=== PATIENT | female | born 1940 | race Caucasian/White ===

== ENCOUNTER 2016-08-15 12:24 | Outpatient (CLI) | payer MEDICARE, OTHER | END 2016-08-15 12:25 | disposition home or self-care (01) | DX: T84.213A Breakdown (mechanical) of internal fixation device of bones of foot and toes, initial encounter (principal); S82.302A Unspecified fracture of lower end of left tibia, initial encounter for closed fracture; S82.832A Other fracture of upper and lower end of left fibula, initial encounter for closed fracture; M17.12 Unilateral primary osteoarthritis, left knee ==

== ENCOUNTER 2016-08-28 10:20 | Inpatient (IN) | payer MEDICARE, OTHER ==
[~2016-08-28 10:20] MED LIST: ceFAZolin 2 GM/50 ML 50 ML IV ONE
[2016-08-28] MEDS ORDERED: LACTATED RINGERS 1,000 ML IV ONE ×2 (11:31→15:37)
[2016-08-28] MEDS ORDERED: MIDAZOLAM 2 MG/2 ML VIAL IVP ONE (13:15)
[2016-08-28] MEDS ORDERED: fentaNYL 100 MCG/2 ML VIAL IVP ONE (13:15)
[2016-08-28] MEDS ORDERED: ACETAMINOPHEN 325 MG TABLET PO PRN (15:32)
[2016-08-28] MEDS ORDERED: BISACODYL 10 MG SUPP PR PRN (15:36)
[2016-08-28] MEDS: ACETAMINOPHEN 1,000 MG/100 ML 100 ML IV SCH ×2 (16:52→22:56)
[2016-08-28] MEDS: HYDROmorphone 1 MG/ML SYRINGE IVP PRN ×2 (17:08→20:07)
[2016-08-28] MEDS: SODIUM CHLORIDE 0.9% 1,000 ML IV SCH (17:10)
[2016-08-28] MEDS: ceFAZolin 2 GM/50 ML 50 ML IV SCH ×2 (17:14→23:51)
[2016-08-28] MEDS: HYDROcod/ACETAM 5/325 MG TABLET PO PRN ×2 (18:07→23:51)
[2016-08-28] MEDS: KETOROLAC 30 MG/ML VIAL IVP PRN (19:19)
[2016-08-28] MEDS: levETIRAcetam 250 MG TABLET PO SCH (20:08)
[2016-08-28] MEDS: SODIUM CHLORIDE FLUSH 0.9% 10 ML SYRINGE IVP SCH (22:58)
[2016-08-29] MEDS: LORazepam 0.5 MG TABLET PO PRN (00:41)
[2016-08-29] MEDS: ACETAMINOPHEN 1,000 MG/100 ML 100 ML IV SCH ×4 (03:52→21:19)
[2016-08-29] MEDS: SODIUM CHLORIDE 0.9% 1,000 ML IV SCH ×2 (04:59→14:21)
[2016-08-29] MEDS: ceFAZolin 2 GM/50 ML 50 ML IV SCH (05:34)
[2016-08-29] MEDS: SODIUM CHLORIDE FLUSH 0.9% 10 ML SYRINGE IVP SCH ×3 (05:44→20:39)
[2016-08-29] MEDS ORDERED: CITALOPRAM 10 MG TABLET PO SCH (09:00)
[2016-08-29] MEDS: MULTIVITAMIN 10 ML, THIAMINE INJ 100 MG, FOLIC ACID INJ 1 MG in SODIUM CHLORIDE 0.9% 1,... IV SCH (09:01)
[2016-08-29] MEDS: levETIRAcetam 250 MG TABLET PO SCH ×2 (09:05→20:38)
[2016-08-29] MEDS: CALCIUM CARBONATE CHEW 500 MG TABLET PO SCH (09:05)
[2016-08-29] MEDS: DOCUSATE SODIUM 100 MG CAPSULE PO SCH (09:05)
[2016-08-29] MEDS: PYRIDOXINE 100 MG TABLET PO SCH (09:06)
[2016-08-29] MEDS: CHOLECALCIFEROL 1,000 UNIT TABLET PO SCH (09:06)
[2016-08-29] MEDS: BISACODYL 5 MG TABLET PO SCH (09:06)
[2016-08-29] MEDS: MAGNESIUM OXIDE 400 MG TABLET PO SCH (09:07)
[2016-08-29] MEDS: VERAPAMIL ER 120 MG TABLET PO SCH (09:07)
[2016-08-29] MEDS: CYANOCOBALAMIN 500 MCG TABLET PO SCH (09:07)
[2016-08-29] MEDS: ENOXAPARIN 40 MG/0.4 ML SYRINGE SUBQ SCH (09:08)
[2016-08-29] MEDS: OMEGA PO SCH (09:52)
[2016-08-29] MEDS: DHA PO SCH (09:52)
[2016-08-29] MEDS: LIPIDS PO SCH (09:52)
[2016-08-29] MEDS: ZINC GLUCONATE PO SCH (09:52)
[2016-08-29] MEDS: KRILL PO SCH (09:52)
[2016-08-29] MEDS: EPA PO SCH (09:52)
[2016-08-29] MEDS: KETOROLAC 30 MG/ML VIAL IVP PRN (14:09)
[2016-08-29] MEDS: SODIUM CHLORIDE FLUSH 0.9% 10 ML SYRINGE IVP PRN (21:35)
[2016-08-30] MEDS: LORazepam 0.5 MG TABLET PO PRN (00:05)
[2016-08-30] MEDS: HYDROcod/ACETAM 5/325 MG TABLET PO PRN ×2 (00:55→23:52)
[2016-08-30] MEDS: ACETAMINOPHEN 1,000 MG/100 ML 100 ML IV SCH ×4 (03:42→22:12)
[2016-08-30] MEDS: SODIUM CHLORIDE FLUSH 0.9% 10 ML SYRINGE IVP SCH ×3 (03:52→22:12)
[2016-08-30] MEDS: levETIRAcetam 250 MG TABLET PO SCH ×2 (09:26→22:12)
[2016-08-30] MEDS: MAGNESIUM OXIDE 400 MG TABLET PO SCH (09:26)
[2016-08-30] MEDS: CALCIUM CARBONATE CHEW 500 MG TABLET PO SCH (09:26)
[2016-08-30] MEDS: ENOXAPARIN 40 MG/0.4 ML SYRINGE SUBQ SCH (09:26)
[2016-08-30] MEDS: PYRIDOXINE 100 MG TABLET PO SCH (09:27)
[2016-08-30] MEDS: CHOLECALCIFEROL 1,000 UNIT TABLET PO SCH (09:28)
[2016-08-30] MEDS: BISACODYL 5 MG TABLET PO SCH (09:29)
[2016-08-30] MEDS: VERAPAMIL ER 120 MG TABLET PO SCH (09:29)
[2016-08-30] MEDS: CYANOCOBALAMIN 500 MCG TABLET PO SCH (09:29)
[2016-08-30] MEDS: DOCUSATE SODIUM 100 MG CAPSULE PO SCH (09:29)
[2016-08-30] MEDS: CITALOPRAM 10 MG TABLET PO SCH (09:41)
[2016-08-30] MEDS: MULTIVITAMIN 10 ML, THIAMINE INJ 100 MG, FOLIC ACID INJ 1 MG in SODIUM CHLORIDE 0.9% 1,... IV SCH (09:42)
[2016-08-30] MEDS: LIPIDS PO SCH (10:15)
[2016-08-30] MEDS: DHA PO SCH (10:15)
[2016-08-30] MEDS: KRILL PO SCH (10:15)
[2016-08-30] MEDS: EPA PO SCH (10:15)
[2016-08-30] MEDS: ZINC GLUCONATE PO SCH (10:15)
[2016-08-30] MEDS: OMEGA PO SCH (10:15)
[2016-08-30] MEDS ORDERED: SODIUM CHLORIDE 0.9% 100ML 100 ML IV ONE (16:47)
[2016-08-30] MEDS: SODIUM CHLORIDE FLUSH 0.9% 10 ML SYRINGE IVP PRN ×2 (16:55→22:12)
[2016-08-31] MEDS: ACETAMINOPHEN 1,000 MG/100 ML 100 ML IV SCH ×3 (08:40→15:44)
[2016-08-31] MEDS: SODIUM CHLORIDE FLUSH 0.9% 10 ML SYRINGE IVP SCH ×2 (08:42→13:49)
[2016-08-31] MEDS: MULTIVITAMIN 10 ML, THIAMINE INJ 100 MG, FOLIC ACID INJ 1 MG in SODIUM CHLORIDE 0.9% 1,... IV SCH (10:21)
[2016-08-31] MEDS: CALCIUM CARBONATE CHEW 500 MG TABLET PO SCH (10:27)
[2016-08-31] MEDS: BISACODYL 5 MG TABLET PO SCH (10:28)
[2016-08-31] MEDS: CHOLECALCIFEROL 1,000 UNIT TABLET PO SCH (10:28)
[2016-08-31] MEDS: DOCUSATE SODIUM 100 MG CAPSULE PO SCH (10:29)
[2016-08-31] MEDS: CITALOPRAM 10 MG TABLET PO SCH (10:29)
[2016-08-31] MEDS: CYANOCOBALAMIN 500 MCG TABLET PO SCH (10:29)
[2016-08-31] MEDS: ENOXAPARIN 40 MG/0.4 ML SYRINGE SUBQ SCH (10:30)
[2016-08-31] MEDS: levETIRAcetam 250 MG TABLET PO SCH (10:30)
[2016-08-31] MEDS: MAGNESIUM OXIDE 400 MG TABLET PO SCH (10:30)
[2016-08-31] MEDS: PYRIDOXINE 100 MG TABLET PO SCH (10:30)
[2016-08-31] MEDS: VERAPAMIL ER 120 MG TABLET PO SCH (10:31)
[2016-08-31] MEDS: LIPIDS PO SCH (10:32)
[2016-08-31] MEDS: KRILL PO SCH (10:32)
[2016-08-31] MEDS: DHA PO SCH (10:32)
[2016-08-31] MEDS: EPA PO SCH (10:32)
[2016-08-31] MEDS: OMEGA PO SCH (10:32)
[2016-08-31] MEDS: ZINC GLUCONATE PO SCH (10:33)
== END 2016-08-31 17:30 | DRG 493 ==
PROC: 0QSK04Z Reposition Left Fibula with Internal Fixation Device, Open Approach (ICD-10-PCS; principal; 2016-08-28 11:30)
PROC: 0QSH04Z Reposition Left Tibia with Internal Fixation Device, Open Approach (ICD-10-PCS; principal; 2016-08-28 11:30)
DX: S89.102A Unspecified physeal fracture of lower end of left tibia, initial encounter for closed fracture (principal); G81.94 Hemiplegia, unspecified affecting left nondominant side; S89.302A Unspecified physeal fracture of lower end of left fibula, initial encounter for closed fracture; M81.0 Age-related osteoporosis without current pathological fracture; Z91.81 History of falling; Z66 Do not resuscitate; Z98.890 Other specified postprocedural states

== ENCOUNTER 2016-09-21 18:23 | Outpatient (CLI) | payer MEDICARE, OTHER | END 2016-09-21 18:24 | disposition critical access hospital (66) | DX: S89.82XA Other specified injuries of left lower leg, initial encounter (principal); W18.11XA Fall from or off toilet without subsequent striking against object, initial encounter; Y92.002 Bathroom of unspecified non-institutional (private) residence as the place of occurrence of the external cause | CPT/HCPCS: A0425; A0429 ==

== ENCOUNTER 2016-09-21 18:34 | Emergency (ER) | payer MEDICARE, OTHER | END 2016-09-21 19:50 | disposition home or self-care (01) | DX: S82.202A Unspecified fracture of shaft of left tibia, initial encounter for closed fracture (principal); S82.832A Other fracture of upper and lower end of left fibula, initial encounter for closed fracture; W18.30XA Fall on same level, unspecified, initial encounter; Y93.89 Activity, other specified; Y92.002 Bathroom of unspecified non-institutional (private) residence as the place of occurrence of the external cause; Y99.8 Other external cause status; G81.90 Hemiplegia, unspecified affecting unspecified side; Z79.82 Long term (current) use of aspirin; Z87.891 Personal history of nicotine dependence ==

== ENCOUNTER 2016-09-28 06:38 | Inpatient (IN) | payer MEDICARE, OTHER ==
[~2016-09-28 06:38] MED LIST changes: +ACETAMINOPHEN 1,000 MG/100 ML 100 ML IV ONE
[2016-09-28] MEDS ORDERED: LACTATED RINGERS 1,000 ML IV ONE ×2 (07:11→09:20)
[2016-09-28] MEDS ORDERED: KETAMINE 500 MG/10 ML VIAL IVP ONE (10:00)
[2016-09-28] MEDS ORDERED: ONDANSETRON 4 MG/2 ML VIAL IVP ONE (10:00)
[2016-09-28] MEDS ORDERED: ACETAMINOPHEN 1,000 MG/100 ML VIAL IV ONE (10:00)
[2016-09-28] MEDS ORDERED: PROPOFOL 200 MG/20 ML VIAL IVP ONE (10:00)
[2016-09-28] MEDS ORDERED: ePHEDrine 50 MG/ML AMP IVP ONE (10:00)
[2016-09-28] MEDS ORDERED: fentaNYL 250 MCG/5 ML VIAL IVP ONE (10:00)
[2016-09-28] MEDS ORDERED: MIDAZOLAM 2 MG/2 ML VIAL IVP ONE (10:00)
[2016-09-28] MEDS ORDERED: LIDOCAINE-MPF 2% 5 ML VIAL IM ONE (10:00)
[2016-09-28] MEDS ORDERED: BUPIVACAINE 0.5%-EPI 1:200000 PF 30 ML VIAL SUBQ ONE (10:37)
[2016-09-28] MEDS ORDERED: ONDANSETRON 4 MG/2 ML VIAL IVP PRN (10:51)
[2016-09-28] MEDS ORDERED: PROCHLORPERAZINE 10 MG/2 ML VIAL IVP PRN (10:51)
[2016-09-28] MEDS ORDERED: BISACODYL 5 MG TABLET PO PRN (10:51)
[2016-09-28] MEDS ORDERED: HYDROmorphone 1 MG/ML SYRINGE IVP PRN (10:51)
[2016-09-28] MEDS ORDERED: ACETAMINOPHEN 325 MG TABLET PO PRN (10:51)
[2016-09-28] MEDS ORDERED: SODIUM CHLORIDE FLUSH 0.9% 10 ML SYRINGE IVP PRN (10:51)
[2016-09-28] MEDS ORDERED: BISACODYL 10 MG SUPP PR PRN (10:51)
[2016-09-28] MEDS ORDERED: ceFAZolin 2 GM/50 ML 50 ML IV SCH (14:00)
[2016-09-28] MEDS: ACETAMINOPHEN 1,000 MG/100 ML 100 ML IV PRN ×2 (14:17→21:38)
[2016-09-28] MEDS: ceFAZolin 2 GM/50 ML 50 ML IV SCH ×2 (14:37→20:19)
[2016-09-28] MEDS: SODIUM CHLORIDE FLUSH 0.9% 10 ML SYRINGE IVP SCH ×2 (15:22→20:56)
[2016-09-28] MEDS: SODIUM CHLORIDE 0.9% 1,000 ML IV SCH ×2 (16:56→20:56)
[2016-09-28] MEDS ORDERED: CARBOXYMETHYLCELLULOSE OPHTH DROPS EACHEYE PRN (19:38)
[2016-09-28] MEDS: levETIRAcetam 250 MG TABLET PO SCH (20:51)
[2016-09-29] MEDS: SODIUM CHLORIDE 0.9% 1,000 ML IV SCH ×2 (00:55→12:22)
[2016-09-29] MEDS: ceFAZolin 2 GM/50 ML 50 ML IV SCH (02:08)
[2016-09-29] MEDS: ACETAMINOPHEN 1,000 MG/100 ML 100 ML IV PRN ×2 (04:57→10:30)
[2016-09-29] MEDS: SODIUM CHLORIDE FLUSH 0.9% 10 ML SYRINGE IVP SCH (05:01)
[2016-09-29] MEDS ORDERED: ASPIRIN 325 MG TABLET PO SCH (08:00)
[2016-09-29] MEDS ORDERED: ENOXAPARIN 30 MG/0.3 ML SYRINGE SUBQ SCH (09:00)
[2016-09-29] MEDS ORDERED: KRILL PO SCH (09:00)
[2016-09-29] MEDS ORDERED: BORON PO SCH (09:00)
[2016-09-29] MEDS ORDERED: MANGANESE PO SCH (09:00)
[2016-09-29] MEDS ORDERED: LIPIDS PO SCH (09:00)
[2016-09-29] MEDS ORDERED: MAGNESIUM OXIDE 400 MG TABLET PO SCH (09:00)
[2016-09-29] MEDS ORDERED: DHA PO SCH (09:00)
[2016-09-29] MEDS ORDERED: ZINC GLUCONATE PO SCH (09:00)
[2016-09-29] MEDS ORDERED: VERAPAMIL ER 120 MG TABLET PO SCH (09:00)
[2016-09-29] MEDS ORDERED: EPA PO SCH (09:00)
[2016-09-29] MEDS ORDERED: CALCIUM CARBONATE CHEW 500 MG TABLET PO SCH (09:00)
[2016-09-29] MEDS ORDERED: OMEGA PO SCH (09:00)
[2016-09-29] MEDS: levETIRAcetam 250 MG TABLET PO SCH (09:41)
== END 2016-09-29 14:24 | disposition home health service (06) | DRG 493 ==
PROC: 0QSH36Z Reposition Left Tibia with Intramedullary Internal Fixation Device, Percutaneous Approach (ICD-10-PCS; principal; 2016-09-28 07:30)
PROC: 0QWH04Z Revision of Internal Fixation Device in Left Tibia, Open Approach (ICD-10-PCS; principal; 2016-09-28 07:30)
DX: S82.252A Displaced comminuted fracture of shaft of left tibia, initial encounter for closed fracture (principal); G81.94 Hemiplegia, unspecified affecting left nondominant side; I47.1 Supraventricular tachycardia; S82.402A Unspecified fracture of shaft of left fibula, initial encounter for closed fracture; S82.392A Other fracture of lower end of left tibia, initial encounter for closed fracture; S82.832A Other fracture of upper and lower end of left fibula, initial encounter for closed fracture; F10.220 Alcohol dependence with intoxication, uncomplicated; M81.0 Age-related osteoporosis without current pathological fracture; Z87.11 Personal history of peptic ulcer disease; Z87.891 Personal history of nicotine dependence; Z79.82 Long term (current) use of aspirin; Z91.81 History of falling; Z79.899 Other long term (current) drug therapy

== ENCOUNTER 2016-11-23 16:38 | Outpatient (CLI) | payer MEDICARE, OTHER ==
--- NOTE | 2016-11-24 08:30 | XRAY Report ---
PA CHEST AND LEFT RIBS: 11/23/2016 COMPARISON: 02/11/2014 CLINICAL HISTORY: Left flank and rib pain. FINDINGS: Patient has an atrial peritoneal shunt catheter with the line in right hemithorax. Multiple healed old left rib fractures are seen. They involve the lateral 6th and 7th ribs and the a nterior aspect of the left 5th rib. Healed old fracture of the left humeral head and neck noted. No definite acute fracture is seen. Normal cardiac size is noted with mild prominence of the aortic arch. Mediastinum is not widened. Pulmonary parenchyma demonstrates mild atelectasis noted in the left lower lung field. IMPRESSION: 1. MULTIPLE HEALED OLD LEFT RIB FRACTURES ARE NOTED DISCUSSED ABOVE WITHOUT ACUTE FRACTURE SEEN. 2. HEART AND LUNGS SHOW NO SIGNIFICANT ABNORMALITY. 3. HEALED OLD FRACTURE OF THE LEFT HUMERAL HEAD AND NECK. THERE IS AN ORTHOPEDIC PLATE AND METHYLME THACRYLATE GLUE SEEN WITHIN THE [id number] LEFT HUMERAL SHAFT. ASSOCIATED OSTEOPOROSIS IS SEEN IN THE LEFT HUMERAL SHAFT. JOB #: [id number] EXT JOB #:[id number]
== END 2016-11-23 16:39 | disposition home or self-care (01) ==
LOC: DI 16:38
PROVIDERS: ATTEND Internal Medicine
DX: R07.81 Pleurodynia (principal); R10.9 Unspecified abdominal pain; M81.0 Age-related osteoporosis without current pathological fracture

== ENCOUNTER 2016-11-23 18:01 | Outpatient (CLI) | payer MEDICARE, OTHER | END 2016-11-23 18:02 | disposition home or self-care (01) | LOC: LAB 18:01 | PROVIDERS: ATTEND Internal Medicine | DX: R10.9 Unspecified abdominal pain (principal) | CPT/HCPCS: 85379 ==

== ENCOUNTER 2016-11-23 19:15 | Emergency (ER) | payer MEDICARE, OTHER ==
[2016-11-23 20:19] LABS: ALBUMIN/GLOBULIN RATIO 1.2 (1.0-2.2); BILIRUBIN,TOTAL 0.5 mg/dL (0.2-1.0); CALCIUM 9.3 mg/dL (8.5-10.3); CREATININE 0.5 mg/dL (0.4-1.0); POTASSIUM 3.6 mmol/L (3.5-5.0); TOTAL PROTEIN 7.6 g/dL (6.7-8.2)
[2016-11-23] MEDS ORDERED: IOPAMIDOL-300 100 ML VIAL IVP ONE (20:52)
--- NOTE | 2016-11-23 21:22 | CT Preliminary Report ---
Exam: CT Chest Angio (PE) IMPRESSION: 1. No evidence of acute pulmonary embolism. 2. No evidence of thoracic aortic dissection. 3. No evidence of lobar consolidation or pneumothorax. There is mild left base atelectasis. 4. There are acute posterior left ninth and tenth rib fractures. [facility] SITE ID: [id number]
--- NOTE | 2016-11-23 21:25 | CT Report ---
EXAM: CT ANGIOGRAM CHEST EXAM DATE: 11/23/2016 08:56 PM. CLINICAL HISTORY: Chest pain/dyspnea, elevated d-dimer. COMPARISON: None. TECHNIQUE: Routine helical imaging was performed through the chest in the pulmonary arterial phase. I V Contrast: 100 cc Isovue-300. Reconstructions: Coronal 3-D MIP reconstructions.Sagittal and coronal. In accordance with CT protocol optimization, one or more of the following dose reduction techniques w ere utilized for this exam: automated exposure control, adjustment of mA and/or KV based on patient s ize, or use of iterative reconstructive technique. FINDINGS: Pulmonary Arteries: Diagnostic quality: Adequate through the segmental arteries. No evidence for acute or chronic pulmona ry emboli. RV/LV is within normal limits. There is no interventricular septal bowing. There is no reflux of cont rast material in the IVC. Lungs/Pleura: There is some dependent reticular opacity at the lung bases which may represent atelect asis. There is scattered peripheral reticular opacity within the lungs. There is no evidence of acute consolidation or effusion. No focal lung mass. No central airway abnormalities. No pneumothorax. Mediastinum: Heart size is within normal limits. There are no enlarged axillary, supraclavicular, med iastinal, or hilar lymph nodes. Thoracic Aorta: There is mild thoracic aortic tortuosity. Upper Abdomen: There are scattered colonic diverticula. There is moderate stool within colon. EMERGENCY [facility] EMT shun t tubing is in place. Other: There are recent posterior left ninth and 10th rib fractures. These are superimposed on jordan us prior posterior left-sided rib fractures. There are remote right-sided rib fractures. There are ch ronic-appearing compression fractures of the T12 and L2 vertebral bodies. IMPRESSION: 1. No evidence of acute pulmonary embolism. 2. No evidence of thoracic aortic dissection. 3. No evidence of lobar consolidation or pneumothorax. There is mild left base atelectasis. 4. There are acute posterior left ninth and tenth rib fractures. [facility] Referring Provider Line: [phone] SITE ID: [id number]
[2016-11-23 21:32] VITALS: BP 143/65
--- NOTE | 2016-11-23 21:46 | ED Physician Documentation ---
PD HPI CHEST PAIN - Stated complaint Stated Complaint: POSS BLOOD CLOT - Chief complaint Chief Complaint: Ext Problem - History obtained from History obtained from: Patient - History of Present Illness Timing - onset: How many days ago (3) Timing - onset during: Light activity Timing - duration: Days (3) Timing - details: Abrupt onset, Still present Quality: Aching, Sharp, Pain Location: Left chest (posteriorly mostly) Radiation: Back Improved by: Rest Worsened by: Inspiration Associated symptoms: General Weakness. No: Shortness of air, Nausea, Vomiting, Feeling faint / dizzy, Palpitations, Cough Similar symptoms before: Has not had sx before Recently seen: Clinic (seen by Dr. Thomas with reported normal CXR. He did D- dimer and was elevated at 700s. Sent in for CT-A chest.) Review of Systems Ten Systems: 10 systems reviewed and negative Constitutional: denies: Fever, Chills Nose: denies: Rhinorrhea / runny nose, Congestion Throat: denies: Sore throat Cardiac: denies: Palpitations, Pedal edema, Calf pain Respiratory: denies: Dyspnea, Cough, Wheezing GI: denies: Nausea, Vomiting, Diarrhea Skin: denies: Rash, Lesions PD PAST MEDICAL HISTORY - Past Medical History Cardiovascular: Arrhythmia, Other Respiratory: None Neuro: Other Endocrine/Autoimmune: None GI: Diverticulitis, Other : None HEENT: Chronic vision loss, Chronic hearing loss, Other Psych: Depression Musculoskeletal: None, Hemiplegia, Other Derm: Other - Past Surgical History Past Surgical History: Yes General: Colonoscopy Ortho: Other /APPOINTMENT SPECIALIST: 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 currettage, 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 Neuro: Craniotomy, CIVILIAN TECHNICIAN shunt, Other HEENT: Cataracts, Tonsil/Adenoidectomy - Present Medications Home Medications: Ambulatory Orders Medication Instructions Recorded Confirmed Levetiracetam 500 mg PO BID 08/30/16 09/28/16 Acetaminophen [Tylenol] 650 mg PO Q4HR PRN #0 tablet 08/31/16 09/28/16 Krill/[place]-3/Dha/Epa/Lipids 300 mg PO DAILY 09/21/16 09/28/16 [Krill Oil 300 mg Softgel] Magnesium Oxide [Mag Ox] 400 mg PO DAILY 09/21/16 09/28/16 Mateus Cit/Mag/D3/Zn/Mounted Police Officer/Valente/Bor 1 tab PO DAILY 09/28/16 09/28/16 [Citracal-Vit D + Magnesium Tab] Calcium Carbonate/Vitamin D3 1 tab PO DAILY 09/28/16 09/28/16 [Calcium 500-Vit D3 200 Tablet] Carboxymethylcellulose Sodium 1 drops LEFTEYE DAILY PRN 09/28/16 09/28/16 [Refresh Tears] Carboxymethylcellulose Sodium 1 drops LEFTEYE QPM 09/28/16 09/28/16 [Refresh Tears] Cholecalciferol (Vitamin D3) 1,000 unit PO DAILY 09/28/16 09/28/16 [Vitamin D3] Cyanocobalamin (Vitamin B-12) 1,000 mcg PO DAILY 09/28/16 09/28/16 [Vitamin B-12] Verapamil HCl [Verapamil ER] 240 mg PO DAILY 09/28/16 09/28/16 Acetaminophen [Tylenol] 650 - 975 mg PO Q4HR PRN #0 tablet 09/29/16 Bisacodyl [Dulcolax] 10 mg PO Q12H PRN #30 tablet 09/29/16 Calcium Carbonate [Tums (Calcium 1,000 mg PO DAILY tablet 09/29/16 Carbonate 500mg)] Enoxaparin [Lovenox] 30 mg SUBQ DAILY #30 syringe 09/29/16 Wheelchair 1 each MC DAILY #1 each 09/29/16 - Allergies Allergies/Adverse Reactions: Allergies Allergy/AdvReac Type Severity Reaction Status Date / Time morphine Allergy Intermediate Hallucinati Verified 11/23/16 19:21 ons oxycodone [Oxycodone] AdvReac Intermediate Itching Verified 11/23/16 19:21 Penicillins AdvReac LUMP AT Verified 11/23/16 19:21 INJECTION SITE - Social History Does the pt smoke?: No Smoking Status: Former smoker Does the pt drink ETOH?: Yes Does the pt have substance abuse?: No - Family History Family history: reports: Non contributory - POLST Patient has POLST: No PD ED PE NORMAL - Vitals Vital signs reviewed: Yes - General General: Alert and oriented X 3, No acute distress, Well developed/nourished - HEENT HEENT: Atraumatic, Pharynx benign - Neck Neck: Supple, no meningeal sign, No adenopathy - Cardiac Cardiac: RRR, No murmur - Respiratory Respiratory: Clear bilaterally - Abdomen Abdomen: Soft, Non tender - Back Back: No spinal TTP, Other (some tenderness left side lower ribs area without crepitance. No rash. ) - Derm Derm: Normal color, Warm and dry - Extremities Extremities: No tenderness to palpate, Normal ROM s pain, No edema, No calf tenderness / cord - Neuro Neuro: Alert and oriented X 3, No motor deficit, Normal speech Results - Vitals Vitals: Oxygen O2 Source Room air - Labs Labs: Laboratory Tests 11/23/16 19:42 Sodium 138 Potassium 3.6 Chloride 98 L Carbon Dioxide 29 Anion Gap 11.0 BUN 11 Creatinine 0.5 Estimated GFR (MDRD) 119 Glucose 94 Calcium 9.3 Total Bilirubin 0.5 AST 19 ALT 16 Alkaline Phosphatase 139 H Total Protein 7.6 Albumin 4.2 Globulin 3.4 Albumin/Globulin Ratio 1.2 Lipase 17 L - Rads (name of study) CT-A chest Radiology: Prelim report reviewed (no PTX nor PE. Noted 2 rib fractures left posterior 03/11 that appear acute.) PD MEDICAL DECISION MAKING - ED course Complexity details: reviewed results (no PE nor lung process. Noted are 2 rib fractures, and patient without acute injury. But can explain the pain. ), considered differential, d/w patient Departure - Departure Disposition: 01 Home, Self Care Clinical Impression: Acute left-sided thoracic back pain Rib fractures Qualifiers: Encounter type: initial encounter Rib fracture type: multiple ribs Fracture type: closed Laterality: left Qualified Code(s): S22.42XA - Multiple fractures of ribs, left side, initial encounter for closed fracture Condition: Stable Record reviewed to determine appropriate education?: Yes Instructions: ED Fx Rib Follow-Up: Jadon Thomas MD [Primary Care Provider] - Comments: Activity as able based on comfort. Tylenol 650 mg 4 times daily for a week or so. Follow up PMD. Discharge Date/Time: 11/23/16 21:54
== END 2016-11-23 21:54 | disposition home or self-care (01) ==
LOC: ED 19:15
DX: S22.42XA Multiple fractures of ribs, left side, initial encounter for closed fracture (principal); X58.XXXA Exposure to other specified factors, initial encounter; M54.6 Pain in thoracic spine; I44.4 Left anterior fascicular block; R94.31 Abnormal electrocardiogram [ECG] [EKG]; G81.90 Hemiplegia, unspecified affecting unspecified side; Z99.3 Dependence on wheelchair; Z87.891 Personal history of nicotine dependence
CPT/HCPCS: 36415; 71101; 71275; 80053; 83690; 85379; 93005; 99284; Q9967

== ENCOUNTER 2016-12-04 14:10 | Outpatient (CLI) | payer MEDICARE, OTHER ==
--- NOTE | 2016-12-04 15:29 | DEXA Report ---
DEXA SCAN: 12/04/2016 CLINICAL INDICATION: Osteopenia. TECHNIQUE: Dual energy x-ray absorptiometry (DXA) was performed on a Appier system. Regions measured are the AP spine, femoral neck, and, if needed, forearm. COMPARISON: None. In accordance with the International Society for Clinical Densitometry (ISCD) guidelines, data from previous exams may be reanalyzed using current recommendations and techniques. This is done to allow a more accurate basis for comparison with the current study. FINDINGS: The data for the lumbar spine is as follows: REGION BMD (g/cm/cm) T-SCORE Z-SCORE L1 0.892 -2.0 -0.1 L2 1.064 -1.1 0.8 L3 0.942 -2.2 -0.2 L4 1.019 -1.5 0.4 TOTAL 0.975 -1.7 0.2 NOTE: All evaluable vertebrae are used for classification. The data for the hip is as follows: REGION BMD (g/cm/cm) T-SCORE Z-SCORE Neck 0.714 -2.3 -0.2 TOTAL 0.574 -3.4 -1.5 NOTE: The femoral neck or total proximal femur, whichever is lowest, is used for classification. * Denotes significant change at the 95% confidence level. Denotes dissimilar scan types or analysis methods. IMPRESSION: THE WHO CLASSIFICATION BASED ON THE INTERNATIONAL REFERENCE STANDARD IS OSTEOPOROSIS. THE FRACTURE RISK IS HIGH. RECOMMENDATION: Patients with diagnosis of osteoporosis or osteopenia should have regular bone mineral density assessment. For those eligible for Medicare, routine testing is allowed once every 2 years. Testing frequency can be increased for patients who have rapidly progressing disease or for those who are receiving medical therapy to restore bone mass. COMMENT: World Health Organization (WHO) definitions for osteoporosis and osteopenia: NORMAL BMD: T-score at -1.0 or higher, fracture risk is low. OSTEOPENIA BMD: T-score between -1.0 and -2.5, fracture risk is increased. OSTEOPOROSIS BMD: T-score at -2.5 or lower, fracture risk high. National Osteoporosis Foundation recommends: 1. Obtain adequate dietary calcium (at least 1200 mg per day) and vitamin D (400 -800 international units per day). 2. Participate, as appropriate, in regular weightbearing and muscle- strengthening exercise. 3. Avoid tobacco use and reduce alcohol and caffeine intake. 4. For more detailed information see the website at www.NOF.org. MTDD
== END 2016-12-04 14:11 | disposition home or self-care (01) ==
LOC: DI 14:10
PROVIDERS: ATTEND Internal Medicine
DX: M81.0 Age-related osteoporosis without current pathological fracture (principal); Z78.0 Asymptomatic menopausal state; S22.41XA Multiple fractures of ribs, right side, initial encounter for closed fracture
CPT/HCPCS: 77080

== ENCOUNTER 2017-03-13 08:00 | Outpatient (CLI) | payer MEDICARE, OTHER ==
[2017-03-13 10:40] LABS: BASOPHILS # (AUTO) 0.1 10^3/uL (0.0-0.1); EOSINOPHILS # (AUTO) 0.1 10^3/uL (0.0-0.7); EOSINOPHILS % (AUTO) 2.1 %; HCT - HEMATOCRIT 43.9 % (37.0-47.0); HGB - HEMOGLOBIN 14.4 g/dL (12.0-16.0); LYMPHOCYTES # (AUTO) 1.5 10^3/uL (1.5-3.5); LYMPHOCYTES % (AUTO) 28.7 %; MEAN CORPUSCULAR HGB CONC 32.7 g/dL (32.0-36.0); MEAN CORPUSCULAR VOLUME 98.1 fL (81.0-99.0); MEAN PLATELET VOLUME 8.6 fL (7.9-10.8); MONOCYTES # (AUTO) 0.5 10^3/uL (0.0-1.0); MONOCYTES % (AUTO) 9.7 %; NEUTROPHILS % (AUTO) 57.5 %; NUCLEATED RED BLOOD CELLS AUTO 0.1 /100WBC; RED BLOOD COUNT 4.48 10^6/uL (4.20-5.40); RED CELL DISTRIBUTION WIDTH 16.1 % (12.0-15.0); UNCORRECTED WHITE BLOOD COUNT 5.2 x10^3/uL; WHITE BLOOD COUNT 5.2 x10^3/uL (4.8-10.8)
== END 2017-03-13 08:01 | disposition home or self-care (01) ==
LOC: LAB.R 08:00
PROVIDERS: ATTEND Internal Medicine
DX: I47.1 Supraventricular tachycardia (principal); E53.8 Deficiency of other specified B group vitamins; F33.2 Major depressive disorder, recurrent severe without psychotic features; C72.9 Malignant neoplasm of central nervous system, unspecified; Z79.899 Other long term (current) drug therapy
CPT/HCPCS: 80177; 85025

== ENCOUNTER 2017-03-29 12:47 | Outpatient (CLI) | payer MEDICARE, OTHER ==
--- NOTE | 2017-03-30 15:52 | Mammography Report ---
DIGITAL SCREENING MAMMOGRAM: 03/29/2017 CLINICAL INDICATION: A 76-year-old with history of benign biopsy, family history of breast cancer, fo r screening. COMPARISON: 04/2015, 05/2012, 01/2010, 12/2007. TECHNIQUE: Routine CC and MLO projections were obtained of the breasts. FINDINGS: The breasts again demonstrate scattered fibroglandular densities bilaterally. Coarse and p unctate, typically benign calcifications are present. No suspicious masses, clustered microcalcificat ions, or regions of architectural distortion are identified. IMPRESSION: BENIGN FINDINGS. RECOMMENDATION: ROUTINE ANNUAL SCREENING UNLESS OTHERWISE CLINICALLY INDICATED. BIRADS CATEGORY 2-BENIGN FINDINGS. STANDARD QUALIFYING STATEMENTS 1. This examination was reviewed with the aid of Computer-Aided Detection (CAD). 2. A negative or benign imaging report should not delay biopsy if clinically suspicious findings are present. Consider surgical consultation if warranted. More than 5% of cancers are not identified by i maging. 3. Dense breasts may obscure an underlying neoplasm. JOB #: [id number] EXT JOB #:[id number]
== END 2017-03-29 12:48 | disposition home or self-care (01) ==
LOC: DI 12:47
PROVIDERS: ATTEND Internal Medicine
DX: Z12.31 Encounter for screening mammogram for malignant neoplasm of breast (principal); Z80.3 Family history of malignant neoplasm of breast
CPT/HCPCS: 77067

== ENCOUNTER 2017-06-04 12:44 | Outpatient (CLI) | payer MEDICARE, OTHER ==
--- NOTE | 2017-06-05 11:38 | XRAY Report ---
LEFT ANKLE: 06/04/2017 HISTORY: Persistent ankle pain post-trauma. COMPARISON: 11/08/2016 and 12/06/2016 and 01/17/2017. FINDINGS: Midfoot fusion hardware is again appreciated with a fracture of one of the talocalcaneal screws as before. Additional hardware noted in the first and second metatarsals. Fractures of the left tibial shaft, left distal tibia and left distal fibular shaft with internal fixation unchanged. Extensive bony callus and new bone formation is seen about the tibial and fibular shaft fractures and cannot exclude osseous fusion between the two at this level. Extensive fixation hardware also noted in the distal femur with degenerative change at the knee joint. Degenerative change and deformity of the ankle joint with tilting of the talar dome similar to preceding study. No superimposed acute findings are seen. IMPRESSION: STATUS POST EXTENSIVE ORIF OF THE DISTAL FEMUR, LEFT TIBIA AND FIBULA WELL PRIOR FUSION SURGERY AT THE TALOCALCANEAL ARTICULATION AND AT THE FIRST AND SECOND PROXIMAL METATARSALS. NO SUPERIMPOSED ACUTE FINDINGS ARE NOTED. FRACTURES APPEARED HEALED. OSSEOUS FUSION BETWEEN THE SHAFT OF THE TIBIA AND FIBULA NOT EXCLUDED. JOB #: [id number] EXT JOB #: [id number] MOODY
== END 2017-06-04 12:45 | disposition home or self-care (01) ==
LOC: DI 12:44
PROVIDERS: ATTEND Podiatrist
DX: S99.912D Unspecified injury of left ankle, subsequent encounter (principal)

== ENCOUNTER 2017-11-08 11:45 | Outpatient (CLI) | payer MEDICARE, OTHER ==
[2017-11-08 13:40] LABS: CRP - C-REACTIVE PROTEIN < 1.0 mg/dL (0-1.0); URIC ACID 6.3 mg/dL (2.6-7.2)
[2017-11-08 16:03] LABS: RHEUMATOID FACTOR NEGATIVE (Negative)
[2017-11-10 14:06] LABS: ANA SCREEN NEGATIVE (NEGATIVE)
== END 2017-11-08 11:46 | disposition home or self-care (01) ==
LOC: LAB.R 11:45
PROVIDERS: ATTEND Internal Medicine
DX: D53.8 Other specified nutritional anemias (principal); M19.90 Unspecified osteoarthritis, unspecified site; Z79.899 Other long term (current) drug therapy
CPT/HCPCS: 36415; 81599; 84550; 85025; 85651; 86038; 86140; 86200; 86430

== ENCOUNTER 2017-11-09 09:42 | Outpatient (CLI) | payer MEDICARE, OTHER ==
[2017-11-09 10:24] LABS: BASOPHILS # (AUTO) 0.1 10^3/uL (0.0-0.1); BASOPHILS % (AUTO) 1.2 %; EOSINOPHILS # (AUTO) 0.2 10^3/uL (0.0-0.7); EOSINOPHILS % (AUTO) 3.5 %; LYMPHOCYTES # (AUTO) 1.3 10^3/uL (1.5-3.5); LYMPHOCYTES % (AUTO) 24.6 %; MEAN CORPUSCULAR HGB CONC 32.5 g/dL (32.0-36.0); MEAN CORPUSCULAR VOLUME 98.5 fL (81.0-99.0); MEAN PLATELET VOLUME 8.4 fL (7.9-10.8); MONOCYTES # (AUTO) 0.4 10^3/uL (0.0-1.0); MONOCYTES % (AUTO) 7.6 %; NEUTROPHILS # (AUTO) 3.3 10^3/uL (1.5-6.6); NEUTROPHILS % (AUTO) 63.1 %; PLT - PLATELET COUNT 222 10^3/uL (130-450); RED BLOOD COUNT 4.69 10^6/uL (4.20-5.40); RED CELL DISTRIBUTION WIDTH 16.8 % (12.0-15.0); WHITE BLOOD COUNT 5.2 x10^3/uL (4.8-10.8)
== END 2017-11-09 09:43 | disposition home or self-care (01) ==
LOC: LAB.R 09:42
PROVIDERS: ATTEND Internal Medicine
DX: M19.90 Unspecified osteoarthritis, unspecified site (principal)
CPT/HCPCS: 85025; 85651

== ENCOUNTER 2018-04-05 08:00 | Outpatient (CLI) | payer MEDICARE, OTHER ==
[2018-04-05 12:59] LABS: BASOPHILS % (AUTO) 0.6 %; EOSINOPHILS # (AUTO) 0.2 10^3/uL (0.0-0.7); EOSINOPHILS % (AUTO) 3.6 %; HGB - HEMOGLOBIN 15.4 g/dL (12.0-16.0); LYMPHOCYTES # (AUTO) 1.1 10^3/uL (1.5-3.5); LYMPHOCYTES % (AUTO) 23.7 %; MEAN CORPUSCULAR HEMOGLOBIN 32.2 pg (27.0-31.0); MEAN CORPUSCULAR HGB CONC 33.1 g/dL (32.0-36.0); MEAN CORPUSCULAR VOLUME 97.5 fL (81.0-99.0); MEAN PLATELET VOLUME 8.6 fL (7.9-10.8); MONOCYTES # (AUTO) 0.6 10^3/uL (0.0-1.0); MONOCYTES % (AUTO) 12.3 %; NEUTROPHILS # (AUTO) 2.8 10^3/uL (1.5-6.6); NEUTROPHILS % (AUTO) 59.8 %; PLT - PLATELET COUNT 238 10^3/uL (130-450); RED BLOOD COUNT 4.77 10^6/uL (4.20-5.40); WHITE BLOOD COUNT 4.7 x10^3/uL (4.8-10.8)
[2018-04-05 13:11] LABS: ALBUMIN/GLOBULIN RATIO 1.4 (1.0-2.2); BILIRUBIN,TOTAL 1.2 mg/dL (0.2-1.0); CALCIUM 8.7 mg/dL (8.5-10.3); CREATININE 0.6 mg/dL (0.4-1.0); TOTAL PROTEIN 6.8 g/dL (6.7-8.2)
[2018-04-05 13:27] LABS: THYROID STIMULATING HORMONE 2.84 uIU/mL (0.34-5.60)
== END 2018-04-05 08:01 | disposition home or self-care (01) ==
LOC: LAB.R 08:00
PROVIDERS: ATTEND Internal Medicine
DX: M81.0 Age-related osteoporosis without current pathological fracture (principal); E53.8 Deficiency of other specified B group vitamins; I47.1 Supraventricular tachycardia
CPT/HCPCS: 80053; 82607; 84443; 85025

== ENCOUNTER 2018-04-11 09:26 | Outpatient (CLI) | payer MEDICARE, OTHER | END 2018-04-11 09:27 | disposition home or self-care (01) | LOC: LAB 09:26 | PROVIDERS: ATTEND Internal Medicine | DX: C72.9 Malignant neoplasm of central nervous system, unspecified (principal) | CPT/HCPCS: 36415; 80177 ==

== ENCOUNTER 2018-08-31 17:30 | Emergency (ER) | payer MEDICARE, OTHER ==
[2018-08-31] MEDS ORDERED: TETANUS/DIPHTHERIA/PERTUSSIS 0.5 ML SYRINGE IM ONE (18:33)
--- NOTE | 2018-08-31 18:36 | ED Physician Documentation ---
PD HPI HEAD INJURY - Stated complaint Stated Complaint: GLF LAC HEAD - Chief complaint Chief Complaint: Trauma Hd/Nk - History obtained from History obtained from: Patient, Family - History of Present Illness Mechanism of head injury: Fell Where head injury occurred: Home Timing - onset: How many hours ago (2), Today Pain level max: 3 Pain level now: 2 Location of injury: Back Quality of pain: Pain, Aching Associated symptoms: No: LOC, AMS, Amnesia, Nausea / vomiting, Neck pain, Paresthesias, Seizures, Ear drainage, Nasal drainage Symptoms improve with: Rest Symptoms worsen with: Palpation, Movement Contributing factors: No: Anticoagulated, Intoxicated Recently seen: Not recently seen Review of Systems Ten Systems: 10 systems reviewed and negative Constitutional: denies: Fever, Chills Nose: denies: Rhinorrhea / runny nose, Congestion Respiratory: denies: Cough GI: denies: Abdominal Pain, Vomiting, Diarrhea Skin: denies: Rash Musculoskeletal: denies: Neck pain, Back pain Neurologic: denies: Confused, Altered mental status, LOC PD PAST MEDICAL HISTORY - Past Medical History Cardiovascular: Arrhythmia, Other Respiratory: None Endocrine/Autoimmune: None GI: Diverticulitis, Other : None HEENT: Chronic vision loss, Chronic hearing loss, Other Psych: Depression Musculoskeletal: None, Hemiplegia, Other Derm: Other - Past Surgical History Past Surgical History: Yes General: Colonoscopy Ortho: Other /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: 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, 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 Neuro: Craniotomy, CLOSING MANAGER shunt, Other HEENT: Cataracts, Tonsil/Adenoidectomy - Present Medications Home Medications: Ambulatory Orders Medication Instructions Recorded Confirmed levETIRAcetam [Levetiracetam] 500 mg PO BID 08/30/16 08/31/18 Magnesium Oxide [Mag Ox] 400 mg PO DAILY 09/21/16 08/31/18 Calcium Carbonate/Vitamin D3 1 tab PO DAILY 09/28/16 08/31/18 [Calcium 500-Vit D3 200 Tablet] Carboxymethylcellulose Sodium 1 drops LEFTEYE DAILY PRN 09/28/16 08/31/18 [Refresh Tears] Carboxymethylcellulose Sodium 1 drops LEFTEYE QPM 09/28/16 08/31/18 [Refresh Tears] Cholecalciferol (Vitamin D3) 1,000 unit PO DAILY 09/28/16 08/31/18 [Vitamin D3] Cyanocobalamin (Vitamin B-12) 1,000 mcg PO DAILY 09/28/16 08/31/18 [Vitamin B-12] Verapamil HCl [Verapamil ER] 240 mg PO DAILY 09/28/16 08/31/18 Bisacodyl [Dulcolax] 10 mg PO Q12H PRN #30 tablet 09/29/16 08/31/18 Calcium Carbonate [Tums (Calcium 1,000 mg PO DAILY tablet 09/29/16 08/31/18 Carbonate 500mg)] Wheelchair 1 each MC DAILY #1 each 09/29/16 08/31/18 - Allergies Allergies/Adverse Reactions: Allergies Allergy/AdvReac Type Severity Reaction Status Date / Time morphine Allergy Intermediate Hallucinati Verified 08/31/18 17:37 ons oxycodone [Oxycodone] AdvReac Intermediate Itching Verified 08/31/18 17:37 Penicillins AdvReac LUMP AT Verified 08/31/18 17:37 INJECTION SITE - Social History Does the pt smoke?: No Smoking Status: Never smoker Does the pt drink ETOH?: Yes Does the pt have substance abuse?: No - POLST Patient has POLST: No PD ED PE NORMAL - Vitals Vital signs reviewed: Yes - General General: Alert and oriented X 3, No acute distress - HEENT HEENT: PERRL, EOMI, Ears normal, Moist mucous membranes, Other (1.5 cm laceration of the occiput.) - Neck Neck: Supple, no meningeal sign, Other (upper c-spine TTP. no stepoff or deformity.) - Cardiac Cardiac: RRR - Respiratory Respiratory: No respiratory distress, Clear bilaterally - Abdomen Abdomen: Soft, Non tender, Non distended - Back Back: No spinal TTP - Derm Derm: Warm and dry - Extremities Extremities: No deformity - Neuro Neuro: Alert and oriented X 3 Results - Vitals Vitals: Vital Signs - 24 hr 08/31/18 08/31/18 08/31/18 17:35 18:18 20:17 Temperature 36 C L Heart Rate 73 73 72 Respiratory 16 16 16 Rate Blood Pressure 131/88 H 131/88 H 130/80 O2 Saturation 97 97 98 Oxygen O2 Source Room air - Rads (name of study) Head CT Radiology: Prelim report reviewed, EMP read contemporaneously, See rad report (No acute intracranial abnormalities. Redemonstration of postoperative changes in the left cerebellar hemisphere. Stable position of catheters, terminating at the medial aspect of the right temporal lobe and in the left lateral ventricle. The ventricles are decompressed as before. ) C-spine CT Radiology: Prelim report reviewed, EMP read contemporaneously, See rad report (No acute intracranial abnormalities. Redemonstration of postoperative changes in the left cerebellar hemisphere. Stable position of catheters, terminating at the medial aspect of the right temporal lobe and in the left lateral ventricle. The ventricles are decompressed as before. ) Procedures - Laceration (location) occiput Length in cm: 1.5 Wound type: Linear, Into subcut fat, Clean Neurovascular status: Sensory intact, Vascular intact Wound Preparation: Irrigated copiously NS, Wound explored, To the base. No: FB identified, FB removed Skin layer closure: [place] (2) Other: Patient tolerated well, No complications, Neurovascular intact, Tetanus booster given (tdap) Complexity: Simple PD MEDICAL DECISION MAKING - ED course Complexity details: reviewed results, re-evaluated patient, considered differential, d/w patient, d/w family ED course: 77-year-old female with a ground-level fall, striking the occiput. Head CT and cervical spine CPR negative. [place] were used to close the wound. Tolerated well. Tdap given. Warnings of infection and instructions on wound care given at bedside. Also counseled on how to minimize scarring. Patient and family counseled regarding signs and symptoms for which I believe and urgent re- evaluation would be necessary. Patient with good understanding of and agreement to plan and is comfortable going home at this time This document was made in part using voice recognition software. While efforts are made to proofread this document, sound alike and grammatical errors may occur. Departure - Departure Disposition: 01 Home, Self Care Clinical Impression: Head injury Qualifiers: Encounter type: initial encounter Qualified Code(s): S09.90XA - Unspecified injury of head, initial encounter Occipital scalp laceration Qualifiers: Encounter type: initial encounter Qualified Code(s): S01.01XA - Laceration without foreign body of scalp, initial encounter Condition: Good Instructions: ED Head Injury Closed, ED Laceration Scalp Stitch Or Stap Follow-Up: Jadon Thomas MD [Primary Care Provider] - Comments: Follow-up with your doctor in 10-14 days for staple removal. Return if you worsen. Your CT scans do not show any acute abnormalities tonight Discharge Date/Time: 08/31/18 20:05
--- NOTE | 2018-08-31 19:27 | CT Report ---
Reason: fall, head/neck injury Procedure Date: 08/31/2018 Accession Number: [id number] / [id number] Procedure: CT - HEAD WO CPT Code: FULL RESULT: EXAM: CT HEAD EXAM DATE: 08/31/2018 07:02 PM. CLINICAL HISTORY: Fall, head/neck injury. COMPARISON: HEAD W/O 08/18/2013 2:40 PM. TECHNIQUE: Multiaxial CT images were obtained from the foramen magnum to the vertex. Reformats: Sagittal and coronal. IV contrast: None. In accordance with CT protocol optimization, one or more of the following dose reduction techniques were utilized for this exam: automated exposure control, adjustment of mA and/or KV based on patient size, or use of iterative reconstructive technique. FINDINGS: Parenchyma: Left cerebellar hemisphere is mostly absent with a small amount of parenchyma remaining. No intraparenchymal hemorrhage. No CT findings of acute territorial infarction. Encephalomalacia in the right frontal lobe. Romero-white differentiation is distinct. Extraaxial Spaces: No subdural or epidural collections identified. Ventricles: No hydrocephalus Sinuses: Imaged paranasal sinuses, orbits, and mastoids show no significant abnormality. Bones: Postoperative changes in the right frontal calvarium and left occiput. Other: None. IMPRESSION: No acute intracranial abnormalities. Redemonstration of postoperative changes in the left cerebellar hemisphere. [facility] ADDENDUM: 08/31/18 19:34 Stable position of catheters, terminating at the medial aspect of the right temporal lobe and in the left lateral ventricle. The ventricles are decompressed as before.
--- NOTE | 2018-08-31 19:41 | CT Report ---
Reason: fall, head/neck injury Procedure Date: 08/31/2018 Accession Number: [id number] / [id number] Procedure: CT - CERVICAL SPINE WO CPT Code: FULL RESULT: EXAM: CT CERVICAL SPINE WITHOUT CONTRAST DATE: 08/31/2018 07:02 PM. HISTORY: Fall, head/neck injury. COMPARISONS: HEAD W/O 08/18/2013 2:40 PM. TECHNIQUE: Thin-section axial images were acquired of the cervical spine without contrast. Post-processing: Coronal and sagittal reformats. Other: None. In accordance with CT protocol optimization, one or more of the following dose reduction techniques were utilized for this exam: automated exposure control, adjustment of mA and/or KV based on patient size, or use of iterative reconstructive technique. FINDINGS: Alignment: No scoliosis. Minimal grade 1 anterolisthesis of C3 on C4, likely degenerative. Bones: No acute fractures. Severe degenerative disk disease from C3-C7, worse at C5-C6 with complete loss of disk space, osteophytes, and sclerosis. Spinal Canal: No high grade narrowing. Other: Shunt catheter tubing courses along the right neck. Tubing courses along the right superficial neck, as well as within the right IJ vein, incompletely visualized. Visualized thyroid is unremarkable. Biapical scarring in the partially imaged lung apices. IMPRESSION: No acute fractures. Severe degenerative disk disease from C3-C7. [facility]
[2018-08-31 20:18] VITALS: BP 130/80
== END 2018-08-31 20:05 | disposition home or self-care (01) ==
LOC: ED 17:30
DX: S09.90XA Unspecified injury of head, initial encounter (principal); S01.01XA Laceration without foreign body of scalp, initial encounter; W18.30XA Fall on same level, unspecified, initial encounter; W22.09XA Striking against other stationary object, initial encounter; Y92.009 Unspecified place in unspecified non-institutional (private) residence as the place of occurrence of the external cause; Z23 Encounter for immunization
CPT/HCPCS: 12001; 70450; 72125; 90471; 99283

== ENCOUNTER 2018-09-11 11:17 | Emergency (ER) | payer MEDICARE, OTHER ==
[2018-09-11 11:33] VITALS: BP 127/73
--- NOTE | 2018-09-11 12:16 | ED Physician Documentation ---
History of Present Illness - Stated complaint Stated Complaint: STAPLE REMOVAL - Chief complaint Chief Complaint: General - History obtained from History obtained from: Patient, Family - History of Present Illness Timing: Other (9 days out from the scalp laceration that was stapled, she is here simply for staple removals. She has no complaints other than the dale been sticking to her pillows. 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, 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 Neuro: Craniotomy, EDUCATIONAL AID shunt, Other HEENT: Cataracts, Tonsil/Adenoidectomy - Present Medications Home Medications: Ambulatory Orders Medication Instructions Recorded Confirmed levETIRAcetam [Levetiracetam] 500 mg PO BID 08/30/16 09/11/18 Magnesium Oxide [Mag Ox] 400 mg PO DAILY 09/21/16 09/11/18 Calcium Carbonate/Vitamin D3 1 tab PO DAILY 09/28/16 09/11/18 [Calcium 500-Vit D3 200 Tablet] Carboxymethylcellulose Sodium 1 drops LEFTEYE DAILY PRN 09/28/16 09/11/18 [Refresh Tears] Carboxymethylcellulose Sodium 1 drops LEFTEYE QPM 09/28/16 09/11/18 [Refresh Tears] Cholecalciferol (Vitamin D3) 1,000 unit PO DAILY 09/28/16 09/11/18 [Vitamin D3] Cyanocobalamin (Vitamin B-12) 1,000 mcg PO DAILY 09/28/16 09/11/18 [Vitamin B-12] Verapamil HCl [Verapamil ER] 240 mg PO DAILY 09/28/16 09/11/18 Bisacodyl [Dulcolax] 10 mg PO Q12H PRN #30 tablet 09/29/16 09/11/18 Calcium Carbonate [Tums (Calcium 1,000 mg PO DAILY tablet 09/29/16 08/31/18 Carbonate 500mg)] Wheelchair 1 each MC DAILY #1 each 09/29/16 08/31/18 - Allergies Allergies/Adverse Reactions: Allergies Allergy/AdvReac Type Severity Reaction Status Date / Time morphine Allergy Intermediate Hallucinati Verified 09/11/18 11:33 ons oxycodone [Oxycodone] AdvReac Intermediate Itching Verified 09/11/18 11:33 Penicillins AdvReac LUMP AT Verified 09/11/18 11:33 INJECTION SITE - Social History Does the pt smoke?: No Smoking Status: Never smoker Does the pt drink ETOH?: Yes Does the pt have substance abuse?: No - POLST Patient has POLST: No PD ED PE NORMAL - Vitals Vital signs reviewed: Yes - General General: No acute distress, Well developed/nourished - HEENT HEENT: Other (Is a healing laceration on the right occiput with [address] that were removed during examination.) - Neck Neck: Supple, no meningeal sign, No bony TTP Results - Vitals Vitals: Vital Signs - 24 hr 09/11/18 11:30 Temperature 36.1 C L Heart Rate 86 Respiratory 16 Rate Blood Pressure 127/73 O2 Saturation 98 Oxygen O2 Source Room air Departure - Departure Disposition: 01 Home, Self Care Clinical Impression: Removal of staple Condition: Good Record reviewed to determine appropriate education?: Yes Instructions: ED Stap Removal No Complication
== END 2018-09-11 12:18 | disposition home or self-care (01) ==
LOC: ED 11:17
DX: S01.01XD Laceration without foreign body of scalp, subsequent encounter (principal); X58.XXXD Exposure to other specified factors, subsequent encounter
CPT/HCPCS: 99281; 99282

== ENCOUNTER 2019-01-13 13:08 | Inpatient (IN) | payer MEDICARE, OTHER ==
[2019-01-13] MEDS ORDERED: SODIUM CHLORIDE 0.9% 1,000 ML IV ONE ×2 (13:57)
[2019-01-13 14:25] LABS: BASOPHILS % (AUTO) 0.4 %; EOSINOPHILS % (AUTO) 0.6 %; HGB - HEMOGLOBIN 13.2 g/dL (12.0-16.0); LYMPHOCYTES # (AUTO) 1.4 10^3/uL (1.5-3.5); MEAN CORPUSCULAR HEMOGLOBIN 31.2 pg (27.0-31.0); MEAN CORPUSCULAR HGB CONC 34.7 g/dL (32.0-36.0); MEAN CORPUSCULAR VOLUME 89.8 fL (81.0-99.0); MONOCYTES # (AUTO) 0.8 10^3/uL (0.0-1.0); NEUTROPHILS # (AUTO) 4.8 10^3/uL (1.5-6.6); NEUTROPHILS % (AUTO) 67.6 %; PLT - PLATELET COUNT 275 10^3/uL (130-450); RED BLOOD COUNT 4.23 10^6/uL (4.20-5.40); RED CELL DISTRIBUTION WIDTH 13.1 % (12.0-15.0); WHITE BLOOD COUNT 7.1 x10^3/uL (4.8-10.8)
--- NOTE | 2019-01-13 14:30 | ED Physician Documentation ---
History of Present Illness - Stated complaint Stated Complaint: CONFUSED - Chief complaint Chief Complaint: Neuro - History obtained from History obtained from: Patient, Family - History of Present Illness Pain level max: 0 Pain level now: 0 - Additonal information Additional information: Family states she has been confusion for the past 5 days since her . Has history of short term memory loss. Family states that the left arm was not working correctly. Found on ground by family. Unknown if she fell or not. Noted stuttering movement of the L arm today. no headache. no head injury. Lives at home with family. Nothing makes this better or worsen. Review of Systems Unable to obtain: Confused Constitutional: denies: Fever, Chills Throat: denies: Sore throat Cardiac: denies: Chest pain / pressure Respiratory: denies: Cough Skin: denies: Rash Musculoskeletal: denies: Neck pain, Back pain Neurologic: denies: Focal weakness, Numbness, Seizure, Headache, LOC PD PAST MEDICAL HISTORY - Past Medical History Past Medical History: Yes Cardiovascular: Arrhythmia, Other Respiratory: None Neuro: Tremors Endocrine/Autoimmune: None GI: Diverticulitis, Other : None HEENT: Chronic vision loss, Chronic hearing loss, Other Psych: Depression Musculoskeletal: None, Hemiplegia, Other Derm: Other - Past Surgical History Past Surgical History: Yes General: Colonoscopy Ortho: 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, 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 Neuro: Craniotomy, SUEDE CLEANER shunt, Other HEENT: Cataracts, Tonsil/Adenoidectomy - Present Medications Home Medications: Ambulatory Orders Medication Instructions Recorded Confirmed levETIRAcetam [Levetiracetam] 500 mg PO BID 08/30/16 09/11/18 Magnesium Oxide [Mag Ox] 400 mg PO DAILY 09/21/16 09/11/18 Calcium Carbonate/Vitamin D3 1 tab PO DAILY 09/28/16 09/11/18 [Calcium 500-Vit D3 200 Tablet] Carboxymethylcellulose Sodium 1 drops LEFTEYE DAILY PRN 09/28/16 09/11/18 [Refresh Tears] Carboxymethylcellulose Sodium 1 drops LEFTEYE QPM 09/28/16 09/11/18 [Refresh Tears] Cholecalciferol (Vitamin D3) 1,000 unit PO DAILY 09/28/16 09/11/18 [Vitamin D3] Cyanocobalamin (Vitamin B-12) 1,000 mcg PO DAILY 09/28/16 09/11/18 [Vitamin B-12] Verapamil HCl [Verapamil ER] 240 mg PO DAILY 09/28/16 09/11/18 Bisacodyl [Dulcolax] 10 mg PO Q12H PRN #30 tablet 09/29/16 09/11/18 Calcium Carbonate [Tums (Calcium 1,000 mg PO DAILY tablet 09/29/16 08/31/18 Carbonate 500mg)] Wheelchair 1 each MC DAILY #1 each 09/29/16 08/31/18 - Allergies Allergies/Adverse Reactions: Allergies Allergy/AdvReac Type Severity Reaction Status Date / Time morphine Allergy Intermediate Hallucinati Verified 09/11/18 11:33 ons oxycodone [Oxycodone] AdvReac Intermediate Itching Verified 09/11/18 11:33 Penicillins AdvReac LUMP AT Verified 09/11/18 11:33 INJECTION SITE - Social History Does the pt smoke?: No Smoking Status: Never smoker Does the pt drink ETOH?: Yes ETOH Use: Liquor Does the pt have substance abuse?: No - POLST Patient has POLST: No PD ED PE NORMAL - Vitals Vital signs reviewed: Yes - General General: No acute distress, Well developed/nourished, Other (alert, oriented to person and place.) - HEENT HEENT: Atraumatic, PERRL, Moist mucous membranes, Other (L sided facial droop, old per family.) - Neck Neck: Supple, no meningeal sign, No bony TTP - Cardiac Cardiac: RRR, Strong equal pulses - Respiratory Respiratory: No respiratory distress, Clear bilaterally - Abdomen Abdomen: Soft, Non tender, Non distended - Back Back: No spinal TTP - Derm Derm: Warm and dry - Extremities Extremities: Normal ROM s pain, No edema, No calf tenderness / cord - Neuro Neuro: No motor deficit (Mildly decreased strength on the left hand.), No sensory deficit, Normal speech, Other (alert) - Psych Psych: Normal mood, Normal affect Results - Vitals Vitals: Vital Signs - 24 hr 01/13/19 01/13/19 13:20 14:14 Temperature 36.7 C Heart Rate 79 73 Respiratory 18 11 L Rate Blood Pressure 91/55 L 120/79 O2 Saturation 100 95 Oxygen O2 Source Room air - EKG (time done) 1341 Rate: Rate (enter#) (76) Rhythm: NSR Joseph: Normal Intervals: Normal [place] QRS: Normal Ischemia: Normal ST segments, Q waves Compare to prior EKG: Unchanged from prior EKG - Labs Labs: Laboratory Tests 01/13/19 01/13/19 01/13/19 13:10 13:10 14:30 WBC 7.1 RBC 4.23 Hgb 13.2 Hct 38.0 MCV 89.8 MCH 31.2 H MCHC 34.7 RDW 13.1 Plt Count 275 MPV 10.0 Neut # (Auto) 4.8 Lymph # (Auto) 1.4 L Lassen # (Auto) 0.8 Eos # (Auto) 0.0 Baso # (Auto) 0.0 Absolute Nucleated RBC 0.00 Nucleated RBC % 0.0 Sodium 122 L Potassium 4.0 Chloride 85 L Carbon Dioxide 23 Anion Gap 14.0 H BUN 8 Creatinine 0.4 Estimated GFR (MDRD) 154 Glucose 98 POC Whole Bld Glucose 86 Calcium 9.1 Total Bilirubin 0.9 AST 17 ALT 14 Alkaline Phosphatase 52 Total Protein 6.6 L Albumin 3.8 Globulin 2.8 Albumin/Globulin Ratio 1.4 Lipase 28 Urine Color Urine Clarity Urine pH Ur Specific [employer] Urine Protein Urine Glucose (UA) Urine Ketones Urine Occult Blood Urine Nitrite Urine Bilirubin Urine Urobilinogen Ur Leukocyte Esterase Urine RBC Urine WBC Ur Squamous Epith Cells Urine Bacteria Urine Mucus Ur Microscopic Review Urine Culture Comments 01/13/19 14:55 WBC RBC Hgb Hct MCV MCH MCHC RDW Plt Count MPV Neut # (Auto) Lymph # (Auto) Lassen # (Auto) Eos # (Auto) Baso # (Auto) Absolute Nucleated RBC Nucleated RBC % Sodium Potassium Chloride Carbon Dioxide Anion Gap BUN Creatinine Estimated GFR (MDRD) Glucose POC Whole Bld Glucose Calcium Total Bilirubin AST ALT Alkaline Phosphatase Total Protein Albumin Globulin Albumin/Globulin Ratio Lipase Urine Color YELLOW Urine Clarity HAZY Urine pH 7.0 Ur Specific [employer] 1.015 Urine Protein NEGATIVE Urine Glucose (UA) NEGATIVE Urine Ketones 15 H Urine Occult Blood NEGATIVE Urine Nitrite POSITIVE H Urine Bilirubin NEGATIVE Urine Urobilinogen 1 (NORMAL) Ur Leukocyte Esterase TRACE H Urine RBC None Seen Urine WBC 6-10 H Ur Squamous Epith Cells MANY Squamous H Urine Bacteria Many H Urine Mucus Marked Strands Ur Microscopic Review INDICATED Urine Culture Comments NOT INDICATED - Rads (name of study) head CT Radiology: Prelim report reviewed, EMP read contemporaneously PD MEDICAL DECISION MAKING - ED course Complexity details: reviewed results, re-evaluated patient, considered differential, d/w patient, d/w family ED course: 78-year-old female presents to the emergency department with altered mental status and difficulty walking that started today. She is significantly hyponatremic. Her last sodium here was around 135-136. She is not on diuretics. No acute findings on head CT. She also has a UTI and was given Rocephin. Possible that this is related to the infection and sodium. If she fails to improve, MRI will likely be obtained. Discussed the case with Dr. Barney, hospitalist who accepts This document was made in part using voice recognition software. While efforts are made to proofread this document, sound alike and grammatical errors may occur. Departure - Departure Disposition: [facility] DC/Xfer Clinical Impression: Hyponatremia, Left-sided weakness UTI (urinary tract infection) Qualifiers: Urinary tract infection type: acute cystitis Hematuria presence: without hematuria Qualified Code(s): N30.00 - Acute cystitis without hematuria Altered mental status Qualifiers: Altered mental status type: disorientation Qualified Code(s): R41.0 - Disorientation, unspecified Falls Qualifiers: Encounter type: initial encounter Qualified Code(s): W19.XXXA - Unspecified fall, initial encounter Condition: Stable Discharge Date/Time: 01/13/19 17:46 NIHSS - Level of Consciousness Level of consciousness: (0) Alert, Keenly responsive LOC Questions: (0) Answers both Q's correct LOC Commands: (0) Performs both correctly - Gaze Best Gaze: (0) Normal - Visual Visual: (0) No loss - Facial Palsy Facial Palsy: (2) Partial paralysis (baseline) - Motor Arms (both separate) Motor Arm (right): (0) No drift Motor Arm (left): (0) No drift - Motor Legs (both separate) Motor Leg (right): (0) No drift Motor Leg (left): (0) No drift - Limb Ataxia Limb Ataxia: (0) Absent - Sensory Sensory: (0) Normal - Best Language Best Language: (0) No aphasia - Dysarthria Dysarthria: (0) Normal - Extinction and Inattention (formally neg Extinction and inattention: (0) No abnormality - Total Score/Results Total Score/Result: 2
[2019-01-13 14:38] LABS: ALBUMIN 3.8 g/dL (3.2-5.5); ALBUMIN/GLOBULIN RATIO 1.4 (1.0-2.2); BILIRUBIN,TOTAL 0.9 mg/dL (0.2-1.0); CALCIUM 9.1 mg/dL (8.5-10.3); CREATININE 0.4 mg/dL (0.4-1.0); TOTAL PROTEIN 6.6 g/dL (6.7-8.2)
--- NOTE | 2019-01-13 15:01 | CT Report ---
Reason: L hand weakness, confusion Procedure Date: 01/13/2019 Accession Number: [id number] / [id number] Procedure: CT - HEAD WO CPT Code: FULL RESULT: EXAM: CT HEAD EXAM DATE: 01/13/2019 02:32 PM. CLINICAL HISTORY: L hand weakness, confusion. COMPARISON: CERVICAL SPINE W/O 08/31/2018 6:55 PM HEAD W/O 08/31/2018 6:55 PM. TECHNIQUE: Multiaxial CT images were obtained from the foramen magnum to the vertex. Reformats: Sagittal and coronal. IV contrast: None. In accordance with CT protocol optimization, one or more of the following dose reduction techniques were utilized for this exam: automated exposure control, adjustment of mA and/or KV based on patient size, or use of iterative reconstructive technique. FINDINGS: Parenchyma: No intraparenchymal hemorrhage. No evidence of mass, midline shift, or CT findings of acute infarction. 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 Romero-white differentiation is distinct. Diffuse chronic microangiopathic white matter changes. Old resection of most of the left cerebellar hemisphere. Extraaxial Spaces: Normal for age. No subdural or epidural collections. Ventricles: The ventricles and cortical sulci are enlarged, consistent with age-related tissue loss. Right posterior parietal STACKER TENDER shunt again noted. Sinuses and orbits: Imaged paranasal sinuses, orbits, and mastoids show no significant abnormality. Bones: Postoperative changes including resection of a large portion of the left occipital bone. Other: None. IMPRESSION: Postoperative and chronic atrophic findings. No definite acute disease. RADIA
[2019-01-13 15:04] LABS: BILIRUBIN,URINE NEGATIVE (NEGATIVE); GLUCOSE, URINE (UA) NEGATIVE (NEGATIVE); KETONES,URINE (UA) 15 mg/dL (NEGATIVE); LEUKOCYTE ESTERASE, URINE TRACE (NEGATIVE); NITRITE,URINE POSITIVE (NEGATIVE); OCCULT BLOOD,URINE NEGATIVE (NEGATIVE); PROTEIN,URINE NEGATIVE (NEGATIVE); UROBILINOGEN,URINE 1 (NORMAL) E.U./dL (NORMAL)
[2019-01-13 15:12] LABS: CLARITY,URINE HAZY (CLEAR)
[2019-01-13 15:21] LABS: BACTERIA,URINE Many /HPF (None Seen); MUCUS,URINE Marked Strands; RBC,URINE None Seen /HPF (0-5); SQUAMOUS EPITHELIAL CELL,UR MANY Squamous (<= Few)
[2019-01-13] MEDS ORDERED: cefTRIAXone 1 GM VIAL IVP STA (15:26)
[2019-01-13] MEDS ORDERED: oxyCODONE 5 MG TABLET PO PRN (16:30)
[2019-01-13] MEDS ORDERED: ONDANSETRON ODT 4 MG TABLET TL PRN (16:30)
[2019-01-13] MEDS ORDERED: ACETAMINOPHEN 325 MG TABLET PO PRN (16:30)
[2019-01-13] MEDS ORDERED: ONDANSETRON 4 MG/2 ML VIAL IVP PRN (16:30)
--- NOTE | 2019-01-13 17:06 | HISTORY & PHYSICAL EXAMINATION ---
Chief Complaint - Chief Complaint Chief Complaint: Confusion, left arm weakness, urinary frequecy <Janes Miner - Last Filed: 01/13/19 20:00> - Chief Complaint Chief Complaint: Confusion, left arm weakness, urinary frequecy <Kelsi Barney - Last Filed: 01/13/19 21:34> History of Present Illness - Admitted From Admitted From:: Home <Janes Miner - Last Filed: 01/13/19 20:00> - History Obtained From Records Reviewed: [facility] History obtained from: ER notes, patient's daughter Exam Limitations: patient has dementia <Kelsi Barney - Last Filed: 01/13/19 21:34> - History of Present Illness HPI Comment/Other: Mrs. Gomez is brought into the ED by her daughter who has been living with her as of 5 days ago due to the sudden passing away of the patient's . She has noticed urinary frequency (as often as every ten minutes earlier today), an unwitnessed ground level fall, and confusion. Most of the history is provided by the patient's daughter as Ana has some short-term memory loss. Patient is seen laying in bed, in no acute distress. She is quite pleasant, interactive and responsive. 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 She is admitted for hyponatremia, altered mental status, and weakness. (Janes Miner) The patient is seen in conjunction with [facility] nurse practitioner student. I have done my own assessment and evaluation.This unfortunate female just lost her . He 5 days ago. 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 The complications of the surgery and the resections of left her with a left hemiplegia, left facial droop. Her is been taking care of her for many many years. Unfortunately he suddenly 5 days ago. He just completed radiation therapy for pancreatic cancer. Daughter has gone in to live with her. For the last 5 days. She maintains that mom is been having an adequate p.o. intake. She started having confusion in the last day. There was a sound of an unwitnessed fall. And her memory loss has become acutely worsened. She always is repetitive. She will ask the same question several times but this is increased in frequency exponentially. Even though she had a residual left hemiplegia, she was always able to move her left arm. Today mom started holding her arm close to her chest almost as if she could not move it. Speech was more slurred. She denied fever, chills, cough. There was some urgency and frequency described. No abdominal pain no change in bowel habits. (Kelsi Barney) History - Past Medical History Cardiovascular: reports: Arrhythmia, Other Respiratory: reports: None Neuro: reports: Tremors, Other (short term memory loss per patient- no known diagnosis of dementia) Endocrine/Autoimmune: reports: None GI: reports: Diverticulitis, Other : reports: None HEENT: reports: Chronic vision loss, Chronic hearing loss (No hearing in L ear, [place]SA[place] in R ear with hearing aid), Other Psych: reports: Depression Musculoskeletal: reports: None, Hemiplegia (L side), Other Derm: reports: Other MRSA Hx?: Yes Other Past Medical History: Osteoporosis. Arthritis. 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 Now daughter has been staying in the home with her mother, but is not capable of continuing that arangement indefinitely.) Living Situation: Other - Substance History Use: Uses substance without health or social issues: Tobacco (former smoker), Alcohol (1-2 shots of whiskey a day ) Dependence: Experiences withdrawal or developed tolerances: NONE - POLST Patient has POLST: No POLST Status: DNR (Daughter states she has an advanced directive stating DNR and DPOA paperwork which I asked her to bring in. She would like to complete a POLST form.) <Janes Miner - Last Filed: 01/13/19 20:00> - Past Surgical History Other past surgical history: No change in past surgical or medical history other than already noted by student - Family & Social History Family History Comment/Other: Mom of cancer in her 80s. She never knew her father. She is the oldest of 4 siblings. They are all very healthy. No one is ill with cancer, heart attack, stroke, diabetes, or thyroid disease. 2 children are completely healthy Social History Notes: She used to smoke many years ago, when she was younger. She drinks 1 or 2 shots of alcohol a day. But denies alcohol abuse. She was for over 60 years to her who 5 days ago. - Substance History Abuse: Recurrent use of substance despite neg consequences: NONE (Daughter states that she is power of deputy prosecuting attorney and has the paperwork at home. She also states she has an advanced directive for her mom at home. She would like a pulsed form filled out while here. She would like mom to be DO NOT RESUSCITATE.) <Kelsi Barney - Last Filed: 01/13/19 21:34> Meds/Allgy <Janes Miner - Last Filed: 01/13/19 20:00> <Kelsi Barney - Last Filed: 01/13/19 21:34> - Home Medications Home Medications: Ambulatory Orders Medication Instructions Recorded Confirmed levETIRAcetam [Levetiracetam] 500 mg PO BID 08/30/16 09/11/18 Magnesium Oxide [Mag Ox] 400 mg PO DAILY 09/21/16 09/11/18 Calcium Carbonate/Vitamin D3 1 tab PO DAILY 09/28/16 09/11/18 [Calcium 500-Vit D3 200 Tablet] Carboxymethylcellulose Sodium 1 drops LEFTEYE DAILY PRN 09/28/16 09/11/18 [Refresh Tears] Carboxymethylcellulose Sodium 1 drops LEFTEYE QPM 09/28/16 09/11/18 [Refresh Tears] Cholecalciferol (Vitamin D3) 1,000 unit PO DAILY 09/28/16 09/11/18 [Vitamin D3] Cyanocobalamin (Vitamin B-12) 1,000 mcg PO DAILY 09/28/16 09/11/18 [Vitamin B-12] Verapamil HCl [Verapamil ER] 240 mg PO DAILY 09/28/16 09/11/18 Bisacodyl [Dulcolax] 10 mg PO Q12H PRN #30 tablet 09/29/16 09/11/18 Calcium Carbonate [Tums (Calcium 1,000 mg PO DAILY tablet 09/29/16 08/31/18 Carbonate 500mg)] Wheelchair 1 each MC DAILY #1 each 09/29/16 08/31/18 - Allergies Allergies/Adverse Reactions: Allergies Allergy/AdvReac Type Severity Reaction Status Date / Time morphine Allergy Intermediate Hallucinati Verified 09/11/18 11:33 ons oxycodone [Oxycodone] AdvReac Intermediate Itching Verified 09/11/18 11:33 Penicillins AdvReac LUMP AT Verified 09/11/18 11:33 INJECTION SITE Review of Systems - Constitutional Constitutional: reports: Fatigue, Weakness - Eyes Eyes: reports: Vision loss - Ears, Nose & Throat Ears, Nose & Throat: reports: Hearing loss, Hearing aids (R ear hearing aid) - Genitourinary Genitourinary: reports: Frequency - Musculoskeletal Musculoskeletal: reports: Muscle weakness - Neurological Neurological: reports: Memory problems - All Other Systems All Other Systems: reports: Reviewed and negative <Janes Miner - Last Filed: 01/13/19 20:00> <Janes Miner - Last Filed: 01/13/19 20:00> <Kelsi Barney - Last Filed: 01/13/19 21:34> Prior Level of Functionality: Patient has been dependent on her for IADLs. She is typically independent in ADLs at home, ambulates with assist of FWW (Janes Miner) Reviewed and agree. (Kelsi Barney) Exam - Vital Signs Reviewed Vital Signs: Yes - Physical Exam General Appearance: positive: No acute distress, Alert Eyes Bilateral: positive: PERRL, Other (Left eye lateral nystagmus, L eyelid unable to close and lacrimal gland does not produce tears) ENT: positive: No signs of dehydration Neck: positive: Nml inspection, Thyroid nml, No JVD, Trachea midline Respiratory: positive: Chest non-tender, Rhonchi (bilateral bases) Cardiovascular: positive: Regular rate & rhythm, No murmur, No gallop Peripheral Pulses: positive: 2+ Abdomen: positive: Non-tender, No organomegaly, Nml bowel sounds. negative: Tenderness Back: positive: Nml inspection. negative: CVA tenderness (R), CVA tenderness (L) Skin: positive: Color nml, No rash, Warm, Dry Extremities: positive: Non-tender, No pedal edema, Other (limited ROM of LUE). negative: Calf tenderness Neurologic/Psychiatric: positive: Mood/affect nml, Disoriented to time, Weakness, Other (A&Ox2, forgetful with short term memory loss.) <KristoferJanes - Last Filed: 01/13/19 20:00> <Kelsi Barney - Last Filed: 01/13/19 21:34> - Vital Signs Vital Signs: Vital Signs x48h Temp Pulse Resp BP Pulse Ox 01/13/19 14:14 73 11 L 120/79 95 01/13/19 13:20 36.7 C 79 18 91/55 L 100 - Physical Exam Comments/Other: She is sitting upright in her bed, daughter and son at the bedside. She is an alert, elderly female who keeps in setting off the IV alarm because she bends her right arm where the antecubital IV is. She has to be constantly reminded to keep her arm straight. She is otherwise comfortable. No acute distress. Temperature 37.2 pulse of 65 blood pressure 107/68 respirations 17 and 94% on room air. Head and neck exam shows the left facial droop, a chronically open left eye, right pupil reactive, left minimally so. Slightly dry oral mucosa. Very deaf. Neck is supple no JVD no bruits or goiter Lungs are clear to auscultation and percussion. There are no crackles rhonchi wheezing Abdomen is soft, nontender, normal bowel sounds, no masses Extremities are warm. There is no clamminess, no paleness. She does not have any clubbing cyanosis or edema. Neurologically she is weak on her left side to a 4/5. Left arm weaker than left leg where her arm is a 4- and leg is a 4+. Right arm and leg are moving spontaneously. She uses her right arm purposefully to grab things. There are no tremors. She is deaf, and keeps on telling me "I cannot hear you". She responds to my questions, but really is not understanding, and keeps on asking where her is. (Kelsi Barney) Conclusion/Plan - Problem List (1) Hyponatremia Conclusion/Plan: NA 122 in ED, on unknown etiology. Patient appears to be euvolemic as she has no edema, third spacing, or ascites. Her BP and HR are WNL suggesting a euvolemia. Differential diagnoses include a failure to thrive, SIADH, adrenal insufficiency. Plan: -Goal is to correct Na level slowly 6-8mmol over next 24hours -Obtain urine Osm and lytes -AM serum cortisol level -IVF NS at 100ml/hour -1L fluid restriction with 750ml free water restriction (2) UTI (urinary tract infection) Conclusion/Plan: Uncomplicated UTI without a leukocytosis and afebrile. Potentially contaminated sample due to presence of epithelial cells. Culture not indicated per lab. She received one dose of ceftriaxone in the ED. Plan: -Continue IV ceftriaxone -Order pyridium for dysuria -Purewick in place Qualifiers: Urinary tract infection type: acute cystitis Hematuria presence: without hematuria Qualified Code(s): N30.00 - Acute cystitis without hematuria (3) Altered mental status Conclusion/Plan: Declined mental status from baseline per patient's family. Likely secondary to acute infection. Stroke ruled out in ED with CT scan. Plan: -At risk for delirium, initiate delirium precautions -Further workup for worsening memory decline deferred to PCP who the patient has an appointment with in 2 weeks Qualifiers: Altered mental status type: disorientation Qualified Code(s): R41.0 - Disorientation, unspecified (4) Left-sided weakness Conclusion/Plan: Baseline in relation to her previous benign brain tumor resections. She has been weaker in the last couple of days per family. She did have a fall earlier today, and has a history of multiple falls in the past. She walks with a FWW at baseline and has a L foot drag or abnormality of sorts per family. -PT evaluation -She will require some sort of housing placement at discharge as her daughter does not permanently live with her and is unable to perform IADL's at baseline - Lab Results Lab results reviewed: Yes Fish Bones: 01/13/19 13:10 01/13/19 13:10 - Diagnostic Imaging Results Diagnostic Imaging Results: positive: Prelim report reviewed, Other (CT Head: FINDINGS: Parenchyma: No intraparenchymal hemorrhage. No evidence of mass, midline shift, or CT findings of acute infarction. 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 Romero-white differentiation is distinct. Diffuse chronic microangiopathic white matter changes. Old resection of most of the left cerebellar hemisphere. Extraaxial Spaces: Normal for age. No subdural or epidural collections. Ventricles: The ventricles and cortical sulci are enlarged, consistent with age-related tissue loss. Right posterior parietal PHILOSOPHY FACULTY MEMBER shunt again noted. Sinuses and orbits: Imaged paranasal sinuses, orbits, and mastoids show no significant abnormality. Bones: Postoperative changes including resection of a large portion of the left occipital bone. Other: None. IMPRESSION: Postoperative and chronic atrophic findings. No definite acute disease.) - EKG Results EKG Interpreted Independently: Yes EKG Comparison: Old EKG unavailable <KristoferJanes - Last Filed: 01/13/19 20:00> - Problem List (1) Acute metabolic encephalopathy Conclusion/Plan: She is always chronically hyponatremic, but her hyponatremia is much worse than usual. I would suspect that this woman is reacting to the loss of her . I know that she is with short-term memory loss is severe, but she must have some idea that her is gone and is constantly asking for him. Daughter maintains that mom has had adequate p.o. intake but I wonder if there is an element of dehydration as well as UTI causing this. Plan: IV fluids Antibiotics, correction of hyponatremia (2) Hyponatremia Conclusion/Plan: To correct her sodium at the level required, it would take at least 2 midnights. This is 1 of the reasons we have admitted her inpatient as opposed to observation. We will start IV fluids of normal saline at 100 mils per hour. Do work-up for hyponatremia outside of dehydration. She has 1 L fluid restriction with 750 of it being free water.Repeat BMP in the morning and daily (3) UTI (urinary tract infection) Conclusion/Plan: Based on abnormal urinary constituents. However there are some squamous cells present. Culture is not indicated. We will still continue to treat empirically with IV ceftriaxone. I hesitate to order in and out straight cath in this elderly woman who is already confused. Qualifiers: Urinary tract infection type: acute cystitis Hematuria presence: without hematuria Qualified Code(s): N30.00 - Acute cystitis without hematuria (4) Acute left-sided muscle weakness Conclusion/Plan: This is superimposed in a woman who already has chronic left hemiplegia as a residual of her previous brain surgeries. I suspect that acute infection and hyponatremia have worsened that. Will reevaluate in the morning when she is hydrated and has antibiotics to see if this resolves. If it does not, she may need an MRI. CT of the head was already done in the emergency room and negative. Rather it was negative for acute processes, she continues to have postoperative chronic atrophic findings. - Lab Results Fish Bones: 01/13/19 13:10 01/13/19 13:10 <Kelsi Barney L - Last Filed: 01/13/19 21:34> - Lab Results Other Lab Results: Laboratory Results - last 24 hr 01/13/19 01/13/19 01/13/19 13:10 13:10 14:30 WBC 7.1 RBC 4.23 Hgb 13.2 Hct 38.0 MCV 89.8 MCH 31.2 H MCHC 34.7 RDW 13.1 Plt Count 275 MPV 10.0 Neut # (Auto) 4.8 Lymph # (Auto) 1.4 L [place] # (Auto) 0.8 Eos # (Auto) 0.0 Baso # (Auto) 0.0 Absolute Nucleated RBC 0.00 Nucleated RBC % 0.0 Sodium 122 L Potassium 4.0 Chloride 85 L Carbon Dioxide 23 Anion Gap 14.0 H BUN 8 Creatinine 0.4 Estimated GFR (MDRD) 154 Glucose 98 POC Whole Bld Glucose 86 Calcium 9.1 Total Bilirubin 0.9 AST 17 ALT 14 Alkaline Phosphatase 52 Total Protein 6.6 L Albumin 3.8 Globulin 2.8 Albumin/Globulin Ratio 1.4 Lipase 28 Urine Color Urine Clarity Urine pH Ur Specific [place] Urine Protein Urine Glucose (UA) Urine Ketones Urine Occult Blood Urine Nitrite Urine Bilirubin Urine Urobilinogen Ur Leukocyte Esterase Urine RBC Urine WBC Ur Squamous Epith Cells Urine Bacteria Urine Mucus Ur Microscopic Review Urine Culture Comments 01/13/19 14:55 WBC RBC Hgb Hct MCV MCH MCHC RDW Plt Count MPV Neut # (Auto) Lymph # (Auto) [place] # (Auto) Eos # (Auto) Baso # (Auto) Absolute Nucleated RBC Nucleated RBC % Sodium Potassium Chloride Carbon Dioxide Anion Gap BUN Creatinine Estimated GFR (MDRD) Glucose POC Whole Bld Glucose Calcium Total Bilirubin AST ALT Alkaline Phosphatase Total Protein Albumin Globulin Albumin/Globulin Ratio Lipase Urine Color YELLOW Urine Clarity HAZY Urine pH 7.0 Ur Specific [place] 1.015 Urine Protein NEGATIVE Urine Glucose (UA) NEGATIVE Urine Ketones 15 H Urine Occult Blood NEGATIVE Urine Nitrite POSITIVE H Urine Bilirubin NEGATIVE Urine Urobilinogen 1 (NORMAL) Ur Leukocyte Esterase TRACE H Urine RBC None Seen Urine WBC 6-10 H Ur Squamous Epith Cells MANY Squamous H Urine Bacteria Many H Urine Mucus Marked Strands Ur Microscopic Review INDICATED Urine Culture Comments NOT INDICATED (Janes Miner) - EKG Results EKG Findings: Normal Sinus Rhythm with 1st degree AV block (FL interval >0.2). Evidence of old interior and anterior infarcts. QTc is prolonged at 455 (Janes Miner) Core Measures - Anticipated LOS I expect patient to be DC'd or transferred within 96 hours.: Yes - DVT/VTE - Prophylaxis VTE/DVT Device ordered at admit?: Yes <Janes Miner - Last Filed: 01/13/19 20:00> - Anticipated LOS I expect patient to be DC'd or transferred within 96 hours.: Yes - DVT/VTE - Prophylaxis VTE/DVT Device ordered at admit?: Yes <Kelsi Barney - Last Filed: 01/13/19 21:34>
[2019-01-13] MEDS: SODIUM CHLORIDE 0.9% 1,000 ML IV SCH (19:47)
[2019-01-13] MEDS: SODIUM CHLORIDE FLUSH 0.9% 10 ML SYRINGE IVP SCH ×2 (20:30→23:21)
[2019-01-13] MEDS: levETIRAcetam INJ 500 MG in SODIUM CHLORIDE 0.9% 100ML 100 ML IV SCH (20:49)
[2019-01-13] MEDS ORDERED: MINERAL OIL LIGHT 10 ML MC PRN (21:12)
[2019-01-13] MEDS: PHENAZOPYRIDINE 100 MG TABLET PO SCH (22:16)
[2019-01-14] MEDS: SODIUM CHLORIDE 0.9% 1,000 ML IV SCH (01:33)
[2019-01-14 05:24] LABS: BASOPHILS % (AUTO) 0.3 %; EOSINOPHILS # (AUTO) 0.1 10^3/uL (0.0-0.7); EOSINOPHILS % (AUTO) 1.4 %; HGB - HEMOGLOBIN 11.9 g/dL (12.0-16.0); LYMPHOCYTES # (AUTO) 1.6 10^3/uL (1.5-3.5); LYMPHOCYTES % (AUTO) 22.4 %; MEAN CORPUSCULAR HEMOGLOBIN 31.1 pg (27.0-31.0); MEAN CORPUSCULAR VOLUME 91.4 fL (81.0-99.0); MEAN PLATELET VOLUME 9.8 fL (7.9-10.8); MONOCYTES # (AUTO) 0.7 10^3/uL (0.0-1.0); MONOCYTES % (AUTO) 9.7 %; NEUTROPHILS # (AUTO) 4.7 10^3/uL (1.5-6.6); NEUTROPHILS % (AUTO) 66.1 %; PLT - PLATELET COUNT 242 10^3/uL (130-450); RED BLOOD COUNT 3.83 10^6/uL (4.20-5.40); RED CELL DISTRIBUTION WIDTH 13.5 % (12.0-15.0); WHITE BLOOD COUNT 7.1 x10^3/uL (4.8-10.8)
[2019-01-14] MEDS: PHENAZOPYRIDINE 100 MG TABLET PO SCH ×3 (05:37→21:34)
[2019-01-14 05:39] LABS: CALCIUM 8.5 mg/dL (8.5-10.3); CREATININE 0.4 mg/dL (0.4-1.0)
--- NOTE | 2019-01-14 08:31 | PROVIDER PROGRESS NOTE ---
<Janes Miner - Last Filed: 01/14/19 08:58> Subjective - Prog Note Date Prog Note Date: 01/14/19 Prog Note Time: 08:28 - Subjective Pt reports feeling: Improved (Mrs. Gomez is seen sitting up on side of her bed, eating breakfast. She is more alert and oriented this morning and reports feeling better after a good night's rest. She does not remember meeting me yesterday. She is answering questions with full sentences today and answers are appropriate. She continues to experience urinary frequency, and forgets that she has a Purewick in place and that she can urinate when needed. She denies and dysuria. She states it's "too early to tell" how weak she feels today as she has not yet been up OOB.) Current Medications - Current Medications Current Medications: Allergies morphine Allergy (Intermediate, Verified 09/11/18 11:33) Hallucinations oxycodone [Oxycodone] Adverse Reaction (Intermediate, Verified 09/11/18 11:33) Itching Penicillins Adverse Reaction (Verified 09/11/18 11:33) LUMP AT INJECTION SITE Home Medications levETIRAcetam [Levetiracetam] 500 mg PO BID 08/30/16 [History Confirmed 09/11/18] Magnesium Oxide [Mag Ox] 400 mg PO DAILY 09/21/16 [History Confirmed 09/11/18] Calcium Carbonate/Vitamin D3 [Calcium 500-Vit D3 200 Tablet] 1 tab PO DAILY 09/28/16 [History Confirmed 09/11/18] Carboxymethylcellulose Sodium [Refresh Tears] 1 drops LEFTEYE DAILY PRN 09/28/16 [History Confirmed 09/11/18] Carboxymethylcellulose Sodium [Refresh Tears] 1 drops LEFTEYE QPM 09/28/16 [History Confirmed 09/11/18] Cholecalciferol (Vitamin D3) [Vitamin D3] 1,000 unit PO DAILY 09/28/16 [History Confirmed 09/11/18] Cyanocobalamin (Vitamin B-12) [Vitamin B-12] 1,000 mcg PO DAILY 09/28/16 [History Confirmed 09/11/18] Verapamil HCl [Verapamil ER] 240 mg PO DAILY 09/28/16 [History Confirmed 09/11/18] Active Medications Acetaminophen (Tylenol) 650 mg PO Q4HR PRN PRN Reason: Pain 1 to 4 Ceftriaxone Sodium 1 gm/ (Sodium Chloride) 100 mls @ 200 mls/hr IV DAILY [facility] Sodium Chloride (Normal Saline 0.9%) 1,000 mls @ 100 mls/hr IV .Q10H [facility] Last Infusion: 01/14/19 03:00 Dose: 0 mls/hr Levetiracetam 500 mg/ Sodium (Chloride) 105 mls @ 400 mls/hr IV BID [facility] Last Infusion: 01/13/19 21:07 Dose: Infused Mineral Oil (Muri-Lube) 10 ml MC Q4H PRN PRN Reason: Dry Eye Ondansetron HCl (Zofran Inj) 4 mg IVP Q6HR PRN PRN Reason: Nausea / Vomiting Ondansetron HCl (Zofran Odt) 4 mg TL Q6HR PRN PRN Reason: Nausea / Vomiting Phenazopyridine HCl (Pyridium) 100 mg PO TID [facility] Last Admin: 01/14/19 05:37 Dose: 100 mg Polyethylene Glycol (Miralax) 17 gm PO DAILY [facility] Sodium Chloride (Normal Saline Flush 0.9%) 10 ml IVP PRN PRN PRN Reason: NEEDED PER PROVIDER ORDERS Sodium Chloride (Normal Saline Flush 0.9%) 10 ml IVP 0100,0900,1700 [facility] Last Admin: 01/13/19 23:21 Dose: Not Given Verapamil HCl (Calan Sa) 240 mg PO DAILY [facility] Objective - Vital Signs/Intake & Output Reviewed Vital Signs: Yes Vital Signs: Vital Signs x48h Temp Pulse Pulse Resp BP Pulse Ox 01/14/19 08:16 36.4 C L 75 20 96 01/14/19 07:30 36.4 C L 75 20 125/72 96 Intake & Output: Intake & Output 01/11/19 01/12/19 01/13/19 01/14/19 23:59 23:59 23:59 23:59 Intake Total 1770 660 Output Total 200 600 Balance 1570 60 - Objective General Appearance: positive: No acute distress, Alert Eyes Bilateral: positive: Other (Right pupil is 3mm, round brisk and reactive to light. L pupil is slightly larger and slower to react with a lateral nystagmus. L eyelid is chronicall open, does not produce tears but appears well lubricated this am.). negative: No scleral icterus ENT: positive: ENT inspection nml, No signs of dehydration Neck: positive: Nml inspection, Thyroid nml, No JVD, Trachea midline. negative: Thyromegaly, Stiff neck Respiratory: positive: Chest non-tender, No respiratory distress, Rhonchi (Rhonchi to lung bases bilaterally) Cardiovascular: positive: Regular rate & rhythm, No murmur, No gallop. negative: JVD present Peripheral Pulses: 2+ Radial (R), 2+ Radial (L) Abdomen: positive: Non-tender, No organomegaly, Nml bowel sounds, No distention. negative: Tenderness Back: positive: Nml inspection. negative: CVA tenderness (R), CVA tenderness (L) Skin: positive: Color nml, No rash, Warm, Dry (thin, fragile) Extremities: positive: Non-tender, Other (arthritic PIP and DIP joints). 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 # (Auto) 0.7 (0.0-1.0) 10^3/uL Eos # (Auto) 0.1 (0.0-0.7) 10^3/uL Baso # (Auto) 0.0 (0.0-0.1) 10^3/uL Absolute Nucleated RBC 0.00 x10^3/uL Nucleated RBC % 0.0 /100WBC Sodium 129 L (135-145) mmol/L Potassium 3.7 (3.5-5.0) mmol/L Chloride 96 L (101-111) mmol/L Carbon Dioxide 25 (21-32) mmol/L Anion Gap 8.0 (6-13) BUN 6 (6-20) mg/dL Creatinine 0.4 (0.4-1.0) mg/dL Estimated GFR (MDRD) 154 (>89) Glucose 99 (70-100) mg/dL POC Whole Bld Glucose (70 - 100) mg/dL Calcium 8.5 (8.5-10.3) mg/dL Total Bilirubin (0.2-1.0) mg/dL AST (10-42) IU/L ALT (10-60) IU/L Alkaline Phosphatase (42-121) IU/L Total Protein (6.7-8.2) g/dL Albumin (3.2-5.5) g/dL Globulin (2.1-4.2) g/dL Albumin/Globulin Ratio (1.0-2.2) Lipase (22-51) U/L TSH (0.34-5.60) uIU/mL Cortisol AM Sample 12.2 ug/dL Urine Color Urine Clarity (CLEAR) Urine pH (5.0-7.5) PH Ur Specific [place] (1.002-1.030) Urine Protein (NEGATIVE) mg/dL Urine Glucose (UA) (NEGATIVE) mg/dL Urine Ketones (NEGATIVE) mg/dL Urine Occult Blood (NEGATIVE) Urine Nitrite (NEGATIVE) Urine Bilirubin (NEGATIVE) Urine Urobilinogen (NORMAL) E.U./dL Ur Leukocyte Esterase (NEGATIVE) Urine RBC (0-5) /HPF Urine WBC (0-5) /HPF Ur Squamous Epith Cells (<= Few) Urine Bacteria (None Seen) /HPF Urine Mucus Ur Microscopic Review Urine Culture Comments Ur Random Chloride Urine Sodium mmol/L 01/13/19 01/13/19 01/13/19 Range/Units 14:55 14:55 14:30 WBC (4.8-10.8) x10^3/uL RBC (4.20-5.40) 10^6/uL Hgb (12.0-16.0) g/dL Hct (37.0-47.0) % MCV (81.0-99.0) fL MCH (27.0-31.0) pg MCHC (32.0-36.0) g/dL RDW (12.0-15.0) % Plt Count (130-450) 10^3/uL MPV (7.9-10.8) fL Neut # (Auto) (1.5-6.6) 10^3/uL Lymph # (Auto) (1.5-3.5) 10^3/uL [place] # (Auto) (0.0-1.0) 10^3/uL Eos # (Auto) (0.0-0.7) 10^3/uL Baso # (Auto) (0.0-0.1) 10^3/uL Absolute Nucleated RBC x10^3/uL Nucleated RBC % /100WBC Sodium (135-145) mmol/L Potassium (3.5-5.0) mmol/L Chloride (101-111) mmol/L Carbon Dioxide (21-32) mmol/L Anion Gap (6-13) BUN (6-20) mg/dL Creatinine (0.4-1.0) mg/dL Estimated GFR (MDRD) (>89) Glucose (70-100) mg/dL POC Whole Bld Glucose 86 (70 - 100) mg/dL Calcium (8.5-10.3) mg/dL Total Bilirubin (0.2-1.0) mg/dL AST (10-42) IU/L ALT (10-60) IU/L Alkaline Phosphatase (42-121) IU/L Total Protein (6.7-8.2) g/dL Albumin (3.2-5.5) g/dL Globulin (2.1-4.2) g/dL Albumin/Globulin Ratio (1.0-2.2) Lipase (22-51) U/L TSH (0.34-5.60) uIU/mL Cortisol AM Sample ug/dL Urine Color YELLOW Urine Clarity HAZY (CLEAR) Urine pH 7.0 (5.0-7.5) PH Ur Specific [place] 1.015 (1.002-1.030) Urine Protein NEGATIVE (NEGATIVE) mg/dL Urine Glucose (UA) NEGATIVE (NEGATIVE) mg/dL Urine Ketones 15 H (NEGATIVE) mg/dL Urine Occult Blood NEGATIVE (NEGATIVE) Urine Nitrite POSITIVE H (NEGATIVE) Urine Bilirubin NEGATIVE (NEGATIVE) Urine Urobilinogen 1 (NORMAL) (NORMAL) E.U./dL Ur Leukocyte Esterase TRACE H (NEGATIVE) Urine RBC None Seen (0-5) /HPF Urine WBC 6-10 H (0-5) /HPF Ur Squamous Epith Cells MANY Squamous H (<= Few) Urine Bacteria Many H (None Seen) /HPF Urine Mucus Marked Strands Ur Microscopic Review INDICATED Urine Culture Comments NOT INDICATED Ur Random Chloride 55 Urine Sodium 86.0 mmol/L 01/13/19 01/13/19 01/13/19 Range/Units 13:10 13:10 13:10 WBC 7.1 (4.8-10.8) x10^3/uL RBC 4.23 (4.20-5.40) 10^6/uL Hgb 13.2 (12.0-16.0) g/dL Hct 38.0 (37.0-47.0) % MCV 89.8 (81.0-99.0) fL MCH 31.2 H (27.0-31.0) pg MCHC 34.7 (32.0-36.0) g/dL RDW 13.1 (12.0-15.0) % Plt Count 275 (130-450) 10^3/uL MPV 10.0 (7.9-10.8) fL Neut # (Auto) 4.8 (1.5-6.6) 10^3/uL Lymph # (Auto) 1.4 L (1.5-3.5) 10^3/uL [place] # (Auto) 0.8 (0.0-1.0) 10^3/uL Eos # (Auto) 0.0 (0.0-0.7) 10^3/uL Baso # (Auto) 0.0 (0.0-0.1) 10^3/uL Absolute Nucleated RBC 0.00 x10^3/uL Nucleated RBC % 0.0 /100WBC Sodium 122 L (135-145) mmol/L Potassium 4.0 (3.5-5.0) mmol/L Chloride 85 L (101-111) mmol/L Carbon Dioxide 23 (21-32) mmol/L Anion Gap 14.0 H (6-13) BUN 8 (6-20) mg/dL Creatinine 0.4 (0.4-1.0) mg/dL Estimated GFR (MDRD) 154 (>89) Glucose 98 (70-100) mg/dL POC Whole Bld Glucose (70 - 100) mg/dL Calcium 9.1 (8.5-10.3) mg/dL Total Bilirubin 0.9 (0.2-1.0) mg/dL AST 17 (10-42) IU/L ALT 14 (10-60) IU/L Alkaline Phosphatase 52 (42-121) IU/L Total Protein 6.6 L (6.7-8.2) g/dL Albumin 3.8 (3.2-5.5) g/dL Globulin 2.8 (2.1-4.2) g/dL Albumin/Globulin Ratio 1.4 (1.0-2.2) Lipase 28 (22-51) U/L TSH 2.07 (0.34-5.60) uIU/mL Cortisol AM Sample ug/dL Urine Color Urine Clarity (CLEAR) Urine pH (5.0-7.5) PH Ur Specific [place] (1.002-1.030) Urine Protein (NEGATIVE) mg/dL Urine Glucose (UA) (NEGATIVE) mg/dL Urine Ketones (NEGATIVE) mg/dL Urine Occult Blood (NEGATIVE) Urine Nitrite (NEGATIVE) Urine Bilirubin (NEGATIVE) Urine Urobilinogen (NORMAL) E.U./dL Ur Leukocyte Esterase (NEGATIVE) Urine RBC (0-5) /HPF Urine WBC (0-5) /HPF Ur Squamous Epith Cells (<= Few) Urine Bacteria (None Seen) /HPF Urine Mucus Ur Microscopic Review Urine Culture Comments Ur Random Chloride Urine Sodium mmol/L Assessment/Plan - Problem List (1) Hyponatremia Impression: Na was 122 on arrival to ED yesterday. She received 2L of NS in ED and was started on NS at 100cc/hour upon arrival to inpatient setting. She is not exhibiting any signs of fluid imbalance and actually appears quite euvolemic. Her acute hyponatremia may be a result of failure to thrive and dehydration initially. She was more disoriented and forgetful yesterday in the ED yesterday, but this has greatly improved today. Her Na this AM is 129. She lost IV access around 0600 this am, and nursing unsuccessful in placing new IV, so fluids have been stopped since then. She is on a free water restriction of 750ml per day with total fluid volume allowed being 1,750. Urine Osm + lytes ordered yesterday, but no results as this is a send-out. Cortisol checked this AM and WNL ruling out an adrenal insufficiency as etiology. Plan: -Defer trying for new IV at this time as patient's confusion has greatly improved with sodium return to near normal levels -Continue with fluid restrictions, can encourage high sodium liquids such as broths, V8 juice etc (2) UTI (urinary tract infection) Impression: UA on arrival + for ketones, nitrates, WBC, and trace leuks, and bacteria. Due to presence of squamous cells, lab will not send for culture. Suspected UTI in setting of urinary frequency and AMS. Uncomplicated as patient is without leukocytosis, fever, hematuria or CVA tenderness. She received IV ceftriaxone in the ED and is scheduled for it again 0900 this am, though currently is without IV access. She is still experiencing frequency, but no longer with dysuria. Plan: -Transition antibiotic to PO - Can continue PO pyridum for another day or 2 until urinary symptoms subside -Consider trial without Purewick soon and encourage patient ambulation to bathroom (with assist) Qualifiers: Urinary tract infection type: acute cystitis Hematuria presence: without hematuria Qualified Code(s): N30.00 - Acute cystitis without hematuria (3) Altered mental status Impression: Baseline mild cognitive impairment, especially short term memory loss. Yesterday she was oriented only to self, but not to time/place/situation. This AM she is more clear, able to tell me she is in the hospital in [place] and that it is December 2018. Likely resolved with improvement of sodium level overnight. Plan: -Continue delirium precautions in high risk elderly, hospitalized women -Follow up with PCP (she has appt in 2 weeks) on progressive decline in baseline memory/cognition Qualifiers: Altered mental status type: disorientation Qualified Code(s): R41.0 - Disorientation, unspecified (4) Left-sided weakness Impression: L sided hemiplegia is baseline for this patient, but she became acutely more weak in setting of her hyponatremia and UTI. She had an unwitnessed ground level fall yesterday while trying to either rise from her chair or sit down, that was heard by her daughter. She was not believed to have hit her head. CT in ED ruled out acute cranial infarct or bleed. She has been dependent on her for all IADLs and assist with some ADLs for many years, but unfortunately with his sudden this past week, her daughter has had to stay with her 22/01. Ambulated with FWW at baseline. Plan: -PT evaluation, will request recommendations on level of care needed at discharge -Will require higher level of care at time of DC which has been discussed with her son and daughter <Debora Lopez - Last Filed: 01/14/19 17:21> Subjective - Prog Note Date Prog Note Time: 17:09 - Subjective Pt reports feeling: Improved Objective - Vital Signs/Intake & Output Reviewed Vital Signs: Yes Vital Signs: Vital Signs x48h Temp Pulse Pulse Resp BP BP Pulse Ox 01/14/19 15:55 36.3 C L 69 20 132/72 H 97 01/14/19 15:00 72 125/80 01/14/19 10:28 74 98/62 Intake & Output: Intake & Output 01/11/19 01/12/19 01/13/19 01/14/19 23:59 23:59 23:59 23:59 Intake Total 1770 1415 Output Total 200 750 Balance 1570 665 - Objective General Appearance: positive: No acute distress, Other (Facial droop of L side) Eyes Bilateral: positive: Other Neck: positive: Nml inspection, No JVD Respiratory: positive: No respiratory distress Cardiovascular: positive: Regular rate & rhythm Abdomen: positive: Non-tender, Nml bowel sounds Extremities: positive: No pedal edema, Other Neurologic/Psychiatric: positive: Weakness, Other - Lab Results Fish Bones: 01/14/19 05:10 01/14/19 05:10 Other Labs: Lab Results x24hrs 01/14/19 01/14/19 01/14/19 Range/Units 05:10 05:10 05:10 WBC 7.1 (4.8-10.8) x10^3/uL RBC 3.83 L (4.20-5.40) 10^6/uL Hgb 11.9 L (12.0-16.0) g/dL Hct 35.0 L (37.0-47.0) % MCV 91.4 (81.0-99.0) fL MCH 31.1 H (27.0-31.0) pg MCHC 34.0 (32.0-36.0) g/dL RDW 13.5 (12.0-15.0) % Plt Count 242 (130-450) 10^3/uL MPV 9.8 (7.9-10.8) fL Neut # (Auto) 4.7 (1.5-6.6) 10^3/uL Lymph # (Auto) 1.6 (1.5-3.5) 10^3/uL [place] # (Auto) 0.7 (0.0-1.0) 10^3/uL Eos # (Auto) 0.1 (0.0-0.7) 10^3/uL Baso # (Auto) 0.0 (0.0-0.1) 10^3/uL Absolute Nucleated RBC 0.00 x10^3/uL Nucleated RBC % 0.0 /100WBC Sodium 129 L (135-145) mmol/L Potassium 3.7 (3.5-5.0) mmol/L Chloride 96 L (101-111) mmol/L Carbon Dioxide 25 (21-32) mmol/L Anion Gap 8.0 (6-13) BUN 6 (6-20) mg/dL Creatinine 0.4 (0.4-1.0) mg/dL Estimated GFR (MDRD) 154 (>89) Glucose 99 (70-100) mg/dL Calcium 8.5 (8.5-10.3) mg/dL TSH (0.34-5.60) uIU/mL Cortisol AM Sample 12.2 ug/dL Ur Random Chloride Urine Sodium mmol/L 01/13/19 01/13/19 Range/Units 14:55 13:10 WBC (4.8-10.8) x10^3/uL RBC (4.20-5.40) 10^6/uL Hgb (12.0-16.0) g/dL Hct (37.0-47.0) % MCV (81.0-99.0) fL MCH (27.0-31.0) pg MCHC (32.0-36.0) g/dL RDW (12.0-15.0) % Plt Count (130-450) 10^3/uL MPV (7.9-10.8) fL Neut # (Auto) (1.5-6.6) 10^3/uL Lymph # (Auto) (1.5-3.5) 10^3/uL [place] # (Auto) (0.0-1.0) 10^3/uL Eos # (Auto) (0.0-0.7) 10^3/uL Baso # (Auto) (0.0-0.1) 10^3/uL Absolute Nucleated RBC x10^3/uL Nucleated RBC % /100WBC Sodium (135-145) mmol/L Potassium (3.5-5.0) mmol/L Chloride (101-111) mmol/L Carbon Dioxide (21-32) mmol/L Anion Gap (6-13) BUN (6-20) mg/dL Creatinine (0.4-1.0) mg/dL Estimated GFR (MDRD) (>89) Glucose (70-100) mg/dL Calcium (8.5-10.3) mg/dL TSH 2.07 (0.34-5.60) uIU/mL Cortisol AM Sample ug/dL Ur Random Chloride 55 Urine Sodium 86.0 mmol/L - Diagnostic Imaging Diagnostic Imaging Results: positive: Final report reviewed Assessment/Plan - Problem List (1) Acute metabolic encephalopathy Impression: This was likely multifactorial: due to infection, hyponatremia and underlying memory loss (? dementia). he mentation seems to be back to her baseline. (2) UTI (urinary tract infection) Impression: iv Ceftriaxone planned today, transition to po BActrim tomorrow and a 7 day course. Continue Florastor for bowel health. Qualifiers: Urinary tract infection type: acute cystitis Hematuria presence: without hematuria Qualified Code(s): N30.00 - Acute cystitis without hematuria (3) Hyponatremia Impression: Urine Na is high in the face of low serum Na, suggesting SIADH. The common causes of SIADH were considered: her's may be due to craniotomies. Will allow ad marisol fluid intake, promote those with electrolytes, follow daily BMP. (4) Left-sided weakness Impression: She appears to be back to her baseline. Awaiting PT recommendations for rehab and the family is aware that she needs time clock inspector care and are determining if that means NH placement or hiring caregivers.
[2019-01-14] MEDS ORDERED: SODIUM CHLORIDE 0.9% MINIBAG 100 ML IV ONE (10:09)
[2019-01-14] MEDS: cefTRIAXone 1 GM in SODIUM CHLORIDE 0.9% MINIBAG 100 ML IV SCH (10:21)
[2019-01-14] MEDS: POLYETHYLENE GLYCOL 3350 17 GM PACKET PO SCH (10:22)
[2019-01-14] MEDS: SODIUM CHLORIDE FLUSH 0.9% 10 ML SYRINGE IVP SCH ×2 (10:26→18:08)
[2019-01-14] MEDS: VERAPAMIL ER 180 MG TABLET PO SCH (10:29)
[2019-01-14] MEDS: levETIRAcetam INJ 500 MG in SODIUM CHLORIDE 0.9% 100ML 100 ML IV SCH ×2 (10:58→21:31)
--- NOTE | 2019-01-14 13:11 | ADVANCE CARE PLANNING NOTE ---
Advance Care Planning - Date/Time Date: 01/14/19 Time: 12:15 - Purpose of encounter Text: To determine her Code status - Parties in attendance Parties in attendance: The Hospitalist and ASSISTANT MANAGER OF OPERATIONS student Janes Miner discussed with the POLST with the patient (sitting in a chair) and the patient's daughter Araceli Bravo (her DPOA) and the patient's son (who is a back-up DPOA). - Decisional capacity Decisional capacity of: The patient has memory loss after several brain surgeries, therefore she does not have decisional capacity. - Subjective/Patient's story Subjective/Patient's story: The patient has required complete care since undergoing craniotomies. This was done by the , who just 5 days ago. - Objective/Medical story Objective/Medical Story: She had 3 craniotomies to remove a brain tumor which left her with L sided weakness, facial droop and poor memeory. She was admitted with hyponatremia and altered mental status and a UTI. Her of 58 years just 5 days ago and the daughter has been caring for her mother 22/01 for thr past few days and noticed confusion and urinary frequency. Since starting iv antibiotics and serum sodium improved, the patient is very alert, feeding herself and answers some questions. The patient verbalizes that she wants "natural ". The daughter also hands me the Advanced Directive that was in the house. - Goals of Care Goals of care determinations: A POLST will be filled out and signed by myself and the daughter, COLBY. The patient will be made a DNR. - Plan Plan: As in goals of care. - Code Status Code Status: Do Not Attempt Resuscitation - Time Spent on Advance Care Planning Time spent on advance care plannin min
[2019-01-14] MEDS: SODIUM CHLORIDE FLUSH 0.9% 10 ML SYRINGE IVP PRN ×2 (21:34→21:40)
[2019-01-15] MEDS: SODIUM CHLORIDE FLUSH 0.9% 10 ML SYRINGE IVP SCH ×2 (00:39→08:27)
[2019-01-15] MEDS: PHENAZOPYRIDINE 100 MG TABLET PO SCH (05:40)
[2019-01-15 05:55] LABS: BASOPHILS # (AUTO) 0.1 10^3/uL (0.0-0.1); BASOPHILS % (AUTO) 0.9 %; EOSINOPHILS # (AUTO) 0.2 10^3/uL (0.0-0.7); EOSINOPHILS % (AUTO) 3.2 %; HGB - HEMOGLOBIN 12.8 g/dL (12.0-16.0); LYMPHOCYTES # (AUTO) 1.7 10^3/uL (1.5-3.5); LYMPHOCYTES % (AUTO) 22.9 %; MEAN CORPUSCULAR HEMOGLOBIN 30.6 pg (27.0-31.0); MEAN CORPUSCULAR HGB CONC 33.3 g/dL (32.0-36.0); MEAN CORPUSCULAR VOLUME 91.9 fL (81.0-99.0); MEAN PLATELET VOLUME 9.7 fL (7.9-10.8); MONOCYTES # (AUTO) 0.7 10^3/uL (0.0-1.0); MONOCYTES % (AUTO) 9.6 %; NEUTROPHILS # (AUTO) 4.7 10^3/uL (1.5-6.6); NEUTROPHILS % (AUTO) 63.3 %; PLT - PLATELET COUNT 279 10^3/uL (130-450); RED BLOOD COUNT 4.18 10^6/uL (4.20-5.40); RED CELL DISTRIBUTION WIDTH 13.8 % (12.0-15.0); WHITE BLOOD COUNT 7.5 x10^3/uL (4.8-10.8)
[2019-01-15 06:12] LABS: CALCIUM 8.9 mg/dL (8.5-10.3); CREATININE 0.4 mg/dL (0.4-1.0)
[2019-01-15 07:17] VITALS: BP 127/88
[2019-01-15] MEDS: cefTRIAXone 1 GM in SODIUM CHLORIDE 0.9% MINIBAG 100 ML IV SCH (08:19)
[2019-01-15] MEDS: VERAPAMIL ER 180 MG TABLET PO SCH (08:19)
[2019-01-15] MEDS: POLYETHYLENE GLYCOL 3350 17 GM PACKET PO SCH (08:27)
[2019-01-15] MEDS: levETIRAcetam INJ 500 MG in SODIUM CHLORIDE 0.9% 100ML 100 ML IV SCH (09:37)
--- NOTE | 2019-01-15 11:29 | Discharge Plan ---
Discharge Plan Problem Reviewed?: Yes Disposition: 06 Home Health Service Condition: Stable Prescriptions: Sulfamethox/Trimeth 800/160 [Bactrim Ds 800/160] 1 each PO BID #10 tablet Diet: Soft (Do not give excessive water or just water to drink. Allow broths, juices and slight water.) Activity Restrictions: Activity as Tolerated Shower Restrictions: No Driving Restrictions: Yes Assistance Devices: Walker Weight Bearing: Full Weight Health Concerns: Weakness and altered mental status, related to UTI and low serum sodium level. Plan of Treatment: Treat the underlying urinary tract infection. Adjust oral intake to prevent hyponatremia. Care Goals: Return home with home health service ordered. Assessment: The patient appeared to be agreeable with the plan, and her 2 children were involved in discussion about the plan as well. Additional Instructions or Follow Up instructions: Finish several more days of oral antibiotics tp treat the UTI. Resume all other home medications. See PCP in 5-10 days for hospital follow-up. Follow-Up Care: Home Health - RN, Home Health - PT, Home Health - OT No Smoking: If you smoke, Please STOP! Call for help. Follow-up with: Conner Barraza MD [Primary Care Provider] -
--- NOTE | 2019-01-23 12:19 | DISCHARGE SUMMARY ---
"Discharge Summary Admit Date: 01/13/19 Discharge Date: 01/15/19 Discharging Provider: Dr Debora Lopez Primary Care Provider: Dr Conner Barraza Code Status: Do Not Attempt Resuscitation Condition at Discharge: Stable Discharge Disposition: Home Health Service - DIAGNOSES Admission Diagnoses: 1) Altered mental status 2) History of brain tumor and 3 craniotomy surgeries in the past 3) Left-sided weakness and cognitive impairment, old 4) Hyponatremia 5) Acute UTI Discharge Diagnoses with Status of Each Condition: See below - HPI History of Present Illness: This is an 78 year old white female who has a history of a brain tumor and underwent several brain surgeries which left her with cognitive impairment and left-sided weakness. Her full-time caregiver was her , who just 5 days previously. The daughter, who came to stay with the patient, noticed that the patient was becoming confused, lethargic and having urinary frequency. She was brought to the ER where she was found to have altered mental status with obtundation, worsened left-sided weakness, she was hyponatremic with a serum sodium of 122, and a UTI was found by urinalysis. She was admitted for care. - CONSULTS | PROCEDURES Consultations: None - HOSPITAL COURSE Hospital Course: (1) Acute metabolic encephalopathy She underwent brain imaging with a head CT ordered in the ER. This showed: post- op changes including resection of a large portion of the left occipital bone, chronic atrophic changes, and no definite acute disease. She was hydrated with iv saline and started on iv antibiotics. By the next morning, her mentation returned back to her baseline, according to confirmation from her children, who visited in her room. Her altered mental status was therefore likely to have been multifactorial: due to infection, new hyponatremia and her underlying memory loss (? dementia). (2) UTI (urinary tract infection) The urinalysis showed high WBCs and bacteria and the daughter's description of her mother's urinary frequency was consistent with a UTI. IV Ceftriaxone was given for 2 days then she was transitioned and discharged on po Bactrim. Also, Florastor was ordered for bowel health. (3) Hyponatremia Her admission Na was 122, and was treated with iv Normal saline. The serum sodium corrected to 134, then 139 at discharge. Her urine Na was high in the face of low serum Na, suggesting SIADH. The common causes of SIADH were considered: her's may be due to brain tumor and craniotomies. It was advised that she hydrate with broth, juices or electrolyte drinks, not just water, after discharge. (4) Left-sided weakness When she was felt to be back to her baseline, by the second day, she was evaluat ed by PT and felt to be a rehab candidate. She was interested in this and she was discharged with Home Health PT. (5) Code status: DNR During this admission, an Advanced Care Plan meeting was held and a new POLST form was signed, establishing her wishes to be a DNR/DNI. - ALLERGIES Allergies/Adverse Reactions: Allergies Allergy/AdvReac Type Severity Reaction Status Date / Time morphine Allergy Intermediate Hallucinati Verified 09/11/18 11:33 ons oxycodone [Oxycodone] AdvReac Intermediate Itching Verified 09/11/18 11:33 Penicillins AdvReac LUMP AT Verified 09/11/18 11:33 INJECTION SITE - MEDICATIONS Home Medications: Ambulatory Orders Medication Instructions Recorded Confirmed levETIRAcetam [Levetiracetam] 500 mg PO BID 08/30/16 01/14/19 Cyanocobalamin (Vitamin B-12) 1,000 mcg PO DAILY 09/28/16 01/14/19 [Vitamin B-12] Verapamil HCl [Verapamil ER] 240 mg PO DAILY 09/28/16 01/14/19 Citalopram Hydrobromide 40 mg PO DAILY 01/14/19 01/14/19 [Citalopram HBr] Magnesium 250 mg PO DAILY 01/14/19 01/14/19 Sulfamethox/Trimeth 800/160 1 each PO BID #10 tablet 01/15/19 [Bactrim Ds 800/160] - PHYSICAL EXAM AT DISCHARGE General Appearance: positive: No acute distress ENT: positive: Other (Moist oral mucosa) Neck: positive: No JVD Respiratory: positive: No respiratory distress Cardiovascular: positive: Regular rate & rhythm, No murmur Abdomen: positive: Non-tender, No distention Extremities: positive: No pedal edema Neurologic/Psychiatric: positive: Facial droop, Other (L sided weakness) - LABS Result Diagrams: 01/15/19 05:39 01/15/19 05:39 - DIAGNOSTIC IMAGING Diagnostic Imaging Results: Final report reviewed - FOLLOW UP Follow Up: See PCP in 5-10 days in hospital follow-up. - TIME SPENT Time Spent in Discharge (Minutes): 30"
== END 2019-01-15 13:50 | disposition home health service (06) | DRG 71 ==
LOC: ED 13:08 → MS2 16:30
PROVIDERS: ADMIT Specialist; ATTEND Internal Medicine
DX: E87.1 Hypo-osmolality and hyponatremia (principal); G93.41 Metabolic encephalopathy; R41.0 Disorientation, unspecified; R53.1 Weakness; E22.2 Syndrome of inappropriate secretion of antidiuretic hormone; R41.3 Other amnesia; N30.00 Acute cystitis without hematuria; G81.94 Hemiplegia, unspecified affecting left nondominant side; Z86.69 Personal history of other diseases of the nervous system and sense organs; R29.810 Facial weakness; G31.9 Degenerative disease of nervous system, unspecified; F02.80 Dementia in other diseases classified elsewhere, unspecified severity, without behavioral disturbance, psychotic disturbance, mood disturbance, and anxiety; H91.93 Unspecified hearing loss, bilateral; Z66 Do not resuscitate; Z63.4 Disappearance and death of family member; Z86.011 Personal history of benign neoplasm of the brain; Z98.2 Presence of cerebrospinal fluid drainage device; Z91.81 History of falling; Z87.891 Personal history of nicotine dependence
CPT/HCPCS: 36415; 70450; 80048; 80053; 81001; 82436; 82533; 83690; 83935; 84300; 84443; 85025; 93005; 96361; 96374; 97161; 97167; 97530; 99285; A9270; 81003; 87086

== ENCOUNTER 2019-01-27 15:28 | Outpatient (CLI) | payer MEDICARE, OTHER | END 2019-01-27 15:29 | disposition home or self-care (01) | LOC: LAB.R 15:28 | PROVIDERS: ATTEND Family Medicine | DX: N39.0 Urinary tract infection, site not specified (principal) | CPT/HCPCS: 87077; 87086; 87181 ==

== ENCOUNTER 2019-02-04 13:13 | Outpatient (CLI) | payer MEDICARE, OTHER ==
--- NOTE | 2019-02-05 08:09 | DEXA Report ---
Reason: OSTEOPOROSIS Procedure Date: 02/04/2019 Accession Number: [id number] / [id number] Procedure: DEX - Dexa Spine and/or Hip CPT Code: FULL RESULT: EXAM: Dexa Spine and/or Hip DATE: 02/04/2019 1:57 PM CLINICAL HISTORY: OSTEOPOROSIS TECHNIQUE: Dual energy x-ray absorptiometry (DXA) was performed on a [email or web address] System. Regions measured are the AP Spine, femoral neck, and if needed forearm. COMPARISON: 12/04/2016. In accordance with the International Society for Clinical Densitometry (ISCD) guidelines, data from previous exams may be reanalyzed using current recommendations and techniques. This is done to allow a more accurate basis for comparison with the current study. FINDINGS: The data for the lumbar spine is as follows: BMD (g/cm/cm) T-SCORE Z-SCORE REGION L1 0.903 -1.9 0.2 L2 1.096 -0.9 1.2 L3 1.045 -1.3 0.8 L4 1.182 -0.2 2.0 TOTAL 1.060 -1.0 1.1 NOTE: All evaluable vertebrae are used for classification The data for the hip is as follows: BMD (g/cm/cm) T-SCORE Z-SCORE REGION Neck 0.712 -2.3 0.0 TOTAL 0.597 -3.3 -1.1 NOTE: The femoral neck or total proximal femur, whichever is lowest, is used for classification. DXA RESULTS SUMMARY: Spine SCAN DATE AGE BMD CHANGE VS CHANGE VS PREVIOUS PREVIOUS % [birth year]04/2019 [age] 1[age]060 0.085* 8.7* 12/04/2016 [age] 0[age]975 * Denotes significant change at the 95% confidence level. Denotes dissimilar scan types or analysis methods. DXA RESULTS SUMMARY: Hip SCAN DATE AGE BMD CHANGE VS CHANGE VS PREVIOUS PREVIOUS % 1/[birth year]04[birth year]2019 80.2 0[age]597 0.023 4.0 [birth year]04/2016 76.1 0.574 * Denotes significant change at the 95% confidence level. Denotes dissimilar scan types or analysis methods. IMPRESSION: THE WHO CLASSIFICATION BASED ON THE INTERNATIONAL REFERENCE STANDARD IS OSTEOPOROSIS. THE FRACTURE RISK IS HIGH. Please note that bone density in the spine is relatively preserved compared to the hip. RECOMMENDATION: Patients with diagnosis of osteoporosis or osteopenia should have regular bone mineral density assessment. For those eligible for Medicare, routine testing is allowed once every 2 years. Testing frequency can be increased for patients who have rapidly progressing disease or for those who are receiving medical therapy to restore bone mass. COMMENT: World Health Organization (WHO) definitions for osteoporosis and osteopenia: NORMAL BMD: T-score at -1.0 or higher, fracture risk is low OSTEOPENIA BMD: T-score between -1.0 and -2.5, fracture risk is increased. OSTEOPOROSIS BMD: T-score at -2.5 or lower, fracture risk is high. National Osteoporosis Foundation recommends: 1. Obtain adequate dietary calcium (at least 1200 mg per day) and vitamin D (400-800 international units per day). 2. Participate, as appropriate, in regular weightbearing and muscle-strengthening exercise. 3. Avoid tobacco use and reduce alcohol and caffeine intake. 4. For more detailed information see the website at www.NOF.org.
== END 2019-02-04 13:14 | disposition home or self-care (01) ==
LOC: DI 13:13
PROVIDERS: ATTEND Family Medicine
DX: M81.0 Age-related osteoporosis without current pathological fracture (principal)
CPT/HCPCS: 77080